=== PATIENT | female | born 1995 | race Caucasian/White ===

== ENCOUNTER 2022-02-05 13:21 | Outpatient (CLI) | payer OTHER, SELFPAY | END 2022-02-05 13:22 | disposition home or self-care (01) | PROVIDERS: Visit Provider Obstetrics & Gynecology | DX: N91.2 Amenorrhea, unspecified (principal) | CPT/HCPCS: 36415; 84702; 86850; 86900; 86901 ==

== ENCOUNTER 2022-02-14 01:31 | Day surgery (SDC) | payer OTHER, SELFPAY ==
[2022-02-10 10:50] VITALS: BMI 21.9
--- NOTE | 2022-02-10 10:57 | PC.NURSE ---
Report to the Outpatient Waiting Room, entrance under the green pavilion located off [facility], at time 0930 on date 02/14/22. OR Time: 1130. - You and your visitor will be asked to self-screen and do not enter if you have any COVID symptoms. - Only one visitor and NO children visitors are allowed at this time. - The patient visitor is requested to leave or wait in car when not with patient due to restrictions. - A mask is required within the hospital. Patients may have clear liquids (water, carbonated beverages, clear teas, apple juice) until 3 hours prior to surgery with a maximum of 20 ounces. - No food from midnight until time of surgery Take the following medications with a SIP of water the morning of surgery: NONE Medications to discontinue per physician: VITAMINS/SUPPLEMENTS Date to take last dose: 02/10/22 Please no make-up, nail divehi, hairspray, perfume, deodorant, or body powder the day of surgery. No jewelry (including any body piercings) or valuables the day of surgery, leave them at home. Please take a shower or bath the night before, or the morning of, surgery with an antibacterial soap. Wear comfortable, loose fitting clothing. - Jewelry must be removed prior to entering the operating room. Rings and piercings that are not removed may be cut off. - The hospital will not accept responsibility for valuables. - Please leave all valuables, including medications, at home the day of surgery. If you are going home after surgery, a licensed contract driver must drive you home. - NO public transportation without another adult. - We recommend that an adult stay with you for 24 hours following discharge. - We also recommend that you do not drive, make important decision, drink alcoholic beverages, or take any drugs that were not prescribed by your health care provider for at least 24 hours after your discharge time. Follow any additional instructions given to you from your surgeon. If you or anyone in your household have experienced Covid symptoms in the past week, please notify your surgeon or the nurse liaison at the phone number below for possible testing. Telephone instructions given to PT - REYNALDO DILLON and asked if any additional questions and then verbalized understanding. Patient advised to call surgeon office or pre surgery nurse liaison [phone] if any additional questions.
--- NOTE | 2022-02-13 19:33 | PM.IMHP ---
H&P: HPI History of Present Illness Date/Time: 02/13/22 19:33 Chief Complaint: Incomplete AB Narrative: Lisa is a 26yo P0010 who presents for incomplete AB. She came in with positive test for her first visit @ ~7wks at the end of December (LMP 11/30/21). Beta was >10k on 02/05/22. She started having bleeding ~02/02/22. She had an US performed on 02/07/22 and showed a thickened lining of 2cm with increased vascularity in it. She reports she has still having quite a bit of bleeding; like day 2-3 of her cycle. She isn't having too much cramping. Emotionally she is doing ok, sad. Review of Systems Review of Systems: All systems reviewed & are unremarkable except as noted in HPI and below PMFSH Past Medical History Medical History Anxiety Family History Family History Other Diabetes mellitus Heart disease Lung cancer Social History Social History Smoking status: Never smoker Alcohol intake: never Substance use: never Substance use type: does not use Gender identity (if verbalized by the patient): Female Spiritual care concerns: No Meds Home Medications and Allergies Home Medications Medication Instructions Recorded Confirmed Type ferrous sulfate 325 mg (65 mg 325 mg PO HS 02/10/22 02/10/22 History iron) tablet multivitamin 1 tablet PO DAILY 02/10/22 02/10/22 History Allergies Allergy/AdvReac Type Severity Reaction Status Date / Time No Known Allergies Allergy Unverified 02/10/22 10:48 Exam Const: General: cooperative, healthy appearing, comfortable and no acute distress Resp: Effort & Inspection: normal respiratory effort Cardio: Rate: regular rate GI: Inspection: normal to inspection GI Palp: No abdominal tenderness and Yes Soft to palpation : Other: deferred to OR Skin: General skin exam: normal color Neuro: General: patient oriented x3 Extrem: General: normal to inspection Psych: Appearance: grossly normal Affect: normal affect Attitude: cooperative Assessment and Plan Assessment and plan (1) Incomplete : Code(s): O03.4 - Incomplete spontaneous without complication Status: Acute Plan - all options discussed; expectant vs medical vs surgical - pt desires to proceed with surgical management via suction D&C - risks and benefits explained in detail - doxycycline 200mg PO once post-op - Rh positive; rhogam not indicated
--- NOTE | 2022-02-14 07:05 | WPDHPUPDATE1 ---
History and Physical Update Update Date/Time: 02/14/22 07:05 History and Physical has been reviewed, including an updated exam of the patient. There are NO changes in the patient's condition. Risks, benefits, and alternatives have been discussed and questions answered. Patient agrees to proceed with procedure.
--- NOTE | 2022-02-14 08:43 | P.PNAN_ITS ---
Anes - Initial Pre Proc Eval Procedure: Operation Date: 02/14/22 11:30 Proposed Procedures p Suction Dilation and Curettage - Maryam Boggs MD Date/Time: 02/14/22 08:43 Surgeon: Maryam Boggs MD Pre Op Diagnosis: missed ab Patient Data Age: 26 Gender: F Height: 1.61 m Weight: 57 kg Allergies Allergy/AdvReac Type Severity Reaction Status Date / Time No Known Allergies Allergy Unverified 02/14/22 09:41 Home Medications Medication Instructions Recorded Confirmed Type ferrous sulfate 325 mg (65 mg 325 mg PO HS 02/10/22 02/14/22 History iron) tablet multivitamin 1 tablet PO DAILY 02/10/22 02/14/22 History acetaminophen 500 mg tablet 1,000 mg PO Q6H PRN pain #60 tabs 02/14/22 Rx ibuprofen 800 mg tablet 800 mg PO TID PRN pain #30 tabs 02/14/22 Rx Patient hx anesthesia problems: none Family hx anesthesia problems: none Results Review: All pre-operative results and documents have been reviewed as part of the pre- operative evaluation. [facility] Past Medical History Medical History (Updated 02/14/22 @ 08:57 by David Boswell DO) Anemia Anxiety Family History Family History Other Diabetes mellitus Heart disease Lung cancer Social History Social History Smoking status: Never smoker Alcohol intake: never Substance use: never Substance use type: does not use Gender identity (if verbalized by the patient): Female Spiritual care concerns: No Anes - Eval Final PreProcedure Day of Procedure 02/14/22 08:43 Patient weight: normal Heart: regular rate and rhythm Lungs: clear to auscultation and normal air movement Airway: Mallampati scale class II Neurological: alert and oriented Last oral intake: >/= 8 hours ASA classification: II Emergent: no Anesthetic plan: proceed Anesthesia type and monitoring: general GIVS and standard monitoring Results Review: All pre-operative results and documents have been reviewed as part of the pre- operative evaluation. Informed Consent: The patient's anesthetic plan and its attendant risks and benefits were discussed with the patient/family/POA. Questions were solicited and answers provided to the satisfaction of the patient/family/POA.
[2022-02-14] MEDS: ACETAMINOPHEN 500 MG TABLET 1000 MG PO (09:52)
[2022-02-14] MEDS: LACTATED RINGERS 1,000 ML 30 ML IV CONT ×2 (10:03→12:54)
[2022-02-14 10:08] LABS: Hematocrit 38.4 % (37.0-47.0); Hemoglobin 12.4 g/dL (12.0-15.0)
[2022-02-14 10:12] VITALS: BP 101/64; PULSE 80; RESP 16; TEMP 36.3; O2SAT 100
[2022-02-14 11:55] VITALS: BP 82/48; PULSE 86; RESP 14; O2SAT 97
--- NOTE | 2022-02-14 11:59 | W.PM.PROC2 ---
Procedure Note - Detailed Date of Procedure 02/14/22 Pre-op Diagnosis Incomplete ab Post-op Diagnosis Same Procedure Performed Suction D&C Surgeon Maryam Boggs MD Anesthesia MAC Indications Lisa is a 26yo P0010 who presented for incomplete AB. She came in with positive test for her first visit @ ~7wks at the end of December (LMP 11/30/21). Beta was >10k on 02/05/22. She started having bleeding ~02/02/22. She had an US performed on 02/07/22 and showed a thickened lining of 2cm with increased vascularity in it. She reports she has still having quite a bit of bleeding; like day 2-3 of her cycle. Findings Cervix ~0.5cm dilated, no bleeding noted. Uterus 8cm; 7 F canula used. Thin endometrial strip at end of case on US. Good hemostasis at end of case. Description of Procedure Lisa was taken to the operating room where she was placed under sedation. She was then prepped and draped in the usual sterile fashion in the dorsal lithotomy position with her legs in low Asad stirrups. A time-out was performed and no preoperative antibiotics were indicated. She will receive doxycycline 200 mg p.o. postop once. A bivalved speculum was then placed within the vagina and the cervix was easily identified. The anterior lip of the cervix was then grasped with single-tooth tenaculum. The uterus was gently sounded. The cervix was then serially dilated to allow for the 7 Slovenian, curved suction curettage. A total of 3 passes were made. Prior to the 3rd pass, the ultrasound was used to visualized a thin endometrial stripe. However, products of conception were noted to be removed the first 2 times so decision was made to make 1 additional pass. Good hemostasis was noted. All instruments were removed from the vagina. Patient was awoken from anesthesia and taken to recovery in a stable condition with plans of same-day discharge home. Estimated Blood Loss 5 IV Fluids 600 Pathology Yes Complications No immediate complications Condition Stable Disposition Same day [facility] Billing Surgery - Charge Forward: Surgery Billing
[2022-02-14 12:15] VITALS: BP 83/43; PULSE 84; RESP 14; O2SAT 100
[2022-02-14 12:45] VITALS: BP 90/56; PULSE 72; RESP 14; O2SAT 100
[2022-02-14] MEDS: DOXYCYCLINE HYCLATE 100 MG TABLET 200 MG PO (12:53)
[2022-02-14 13:15] VITALS: BP 102/68; PULSE 80; RESP 14
[2022-02-14] MEDS: oxyCODONE HCL (*CRX) 5 MG TAB IR PO (13:15)
[2022-02-14 13:35] VITALS: BP 100/65; PULSE 83; RESP 14
== END 2022-02-14 13:43 | disposition home or self-care (01) ==
PROVIDERS: Anesthesiology; Visit Provider Obstetrics & Gynecology
PROC: (CPT 59812; principal; 2022-02-14 11:30)
DX: O03.4 Incomplete spontaneous abortion without complication (principal); F41.9 Anxiety disorder, unspecified; D64.9 Anemia, unspecified
CPT/HCPCS: 59812; 36415; 85014; 85018; 88305; A9270; J1885; J2250; J2704; J3010; J7120

== ENCOUNTER 2022-07-28 15:21 | Outpatient (CLI) | payer OTHER, SELFPAY ==
[2022-07-28 15:54] LABS: Basophils Percent Auto 0.2 % (0.2-1.2); Eosinophils Absolute Auto 0.1 K/mm3 (0-0.3); Eosinophils Percent Auto 0.6 % (0-4.4); Hematocrit 38.1 % (37.0-47.0); Hemoglobin 12.5 g/dL (12.0-15.0); Immature Granulocyte Absolute 0.02 K/mm3 (0.00-0.031); Immature Granulocyte Percent A 0.2 % (0-0.5); Lymphocytes Absolute Auto 1.73 K/mm3 (0.9-3.2); Lymphocytes Percent Auto 20.8 % (18.3-44.2); Mean Corpuscular HGB Conc 32.8 g/dl (32-36); Mean Corpuscular Hemoglobin 30.3 pg (26-34); Mean Corpuscular Volume 92.3 fl (80-100); Mean Platelet Volume 8.5 fl (7.4-10.4); Monocytes Absolute Auto 0.5 K/mm3 (0.1-0.6); Neutrophils Percent Auto 72.2 % (45.5-73.1); Platelet Count Result 437 k/mm3 (150-375); Red Blood Count 4.13 M/mm3 (4.2-5.4); Red Cell Distribution Width 13.6 % (11.5-14.5); White Blood Count 8.3 K/mm3 (4.5-10.0)
[2022-07-28 16:45] LABS: HIV 1/2 Ab P24 Ag Result Negative (Negative)
[2022-07-28 19:39] LABS: Hepatitis B Surface Antigen Negative (Negative)
[2022-07-29 16:54] LABS: Rapid Plasma Reagin Non-Reactive (NonReactive)
[2022-08-01 11:30] LABS: CMV IgG Antibody <0.60 U/mL (<0.60)
== END 2022-07-28 15:22 | disposition home or self-care (01) ==
LOC: ANHLAB 15:22
PROVIDERS: Visit Provider Student in an Organized Health Care Education/Training Program
DX: N94.89 Other specified conditions associated with female genital organs and menstrual cycle (principal)
CPT/HCPCS: 36415; 84702; 85025; 86592; 86644; 86703; 86747; 86787; 86850; 86900; 86901; 87086; 87340; G0432

== ENCOUNTER 2022-10-07 16:56 | Outpatient (CLI) | payer OTHER, SELFPAY ==
[2022-10-07 19:46] LABS: Rubella IgG Antibody 9.4 IU/ML
== END 2022-10-07 16:57 | disposition home or self-care (01) ==
LOC: ANHLAB 16:58
PROVIDERS: Visit Provider Student in an Organized Health Care Education/Training Program
DX: Z34.90 Encounter for supervision of normal pregnancy, unspecified, unspecified trimester (principal)
CPT/HCPCS: 36415; 86762

== ENCOUNTER 2022-12-15 13:44 | Outpatient (CLI) | payer OTHER, SELFPAY ==
[2022-12-15 16:30] LABS: Basophils Percent Auto 0.3 % (0.2-1.2); Eosinophils Percent Auto 0.4 % (0-4.4); Hematocrit 35.4 % (37.0-47.0); Hemoglobin 11.3 g/dL (12.0-15.0); Immature Granulocyte Absolute 0.06 K/mm3 (0.00-0.031); Immature Granulocyte Percent A 0.6 % (0-0.5); Lymphocytes Absolute Auto 1.65 K/mm3 (0.9-3.2); Lymphocytes Percent Auto 16.9 % (18.3-44.2); Mean Corpuscular HGB Conc 31.9 g/dl (32-36); Mean Corpuscular Hemoglobin 29.6 pg (26-34); Mean Corpuscular Volume 92.7 fl (80-100); Monocytes Absolute Auto 0.5 K/mm3 (0.1-0.6); Monocytes Percent Auto 4.9 % (2.6-8.5); Neutrophils Absolute Auto 7.5 K/mm3 (1.3-6.7); Neutrophils Percent Auto 76.9 % (45.5-73.1); Platelet Count Result 323 k/mm3 (150-375); Red Blood Count 3.82 M/mm3 (4.2-5.4); Red Cell Distribution Width 13.2 % (11.5-14.5); White Blood Count 9.7 K/mm3 (4.5-10.0)
[2022-12-15 16:35] LABS: Glucose 1 Hour PP 50gm Dose 104 mg/dL
[2022-12-15 17:14] LABS: HIV 1/2 Ab P24 Ag Result Negative (Negative)
== END 2022-12-15 13:45 | disposition home or self-care (01) ==
LOC: ANHLAB 13:45
PROVIDERS: Visit Provider Obstetrics & Gynecology
DX: Z34.90 Encounter for supervision of normal pregnancy, unspecified, unspecified trimester (principal); Z3A.00 Weeks of gestation of pregnancy not specified
CPT/HCPCS: 36415; 82947; 85025; 86703; G0432

== ENCOUNTER 2023-02-20 01:43 | Inpatient (IN) | payer OTHER, SELFPAY ==
[2023-02-20] VITALS (279 sets, daily range): BP systolic 109–149; BP diastolic 63–109; PULSE 59–163; TEMP 36.6–37.3; O2SAT 89–100; BMI 30.9
[2023-02-20] MEDS: LACTATED RINGERS 1,000 ML 125 ML IV CONT (02:41)
[2023-02-20] MEDS: AMPICILLIN 2 GM/NS 100 ML 2 GM/100 ML BAG IVPB (02:42)
--- NOTE | 2023-02-20 02:49 | LDADM ---
This patient, Lisa Hernandez, was admitted to Labor/Delivery/Recovery 108 on 02/20/23 at 01:43. Plans for labor, pain management and were discussed with patient. Patient/family oriented to hospital policies and general routines including ID bracelet, bed and alarms, visiting hours, pain management, procedures, bathroom and other care routines, personal items, smoking policy, room service/diet and guest tray routines, infant security routines, and visiting hours. Patient/Family are encouraged to report perceived risks to care and to ask questions if they do not understand what they are told or what they should do. See OBIX for further documentation.
[2023-02-20 03:15] LABS: Basophils Percent Auto 0.3 % (0.2-1.2); Eosinophils Absolute Auto 0.1 K/mm3 (0-0.3); Eosinophils Percent Auto 0.6 % (0-4.4); Hematocrit 37.8 % (37.0-47.0); Hemoglobin 12.3 g/dL (12.0-15.0); Immature Granulocyte Absolute 0.07 K/mm3 (0.00-0.031); Immature Granulocyte Percent A 0.6 % (0-0.5); Lymphocytes Absolute Auto 2.13 K/mm3 (0.9-3.2); Lymphocytes Percent Auto 19.6 % (18.3-44.2); Mean Corpuscular HGB Conc 32.5 g/dl (32-36); Mean Corpuscular Hemoglobin 29.1 pg (26-34); Mean Corpuscular Volume 89.6 fl (80-100); Mean Platelet Volume 10.1 fl (7.4-10.4); Monocytes Absolute Auto 0.6 K/mm3 (0.1-0.6); Monocytes Percent Auto 5.7 % (2.6-8.5); Neutrophils Percent Auto 73.2 % (45.5-73.1); Platelet Count Result 305 k/mm3 (150-375); Red Blood Count 4.22 M/mm3 (4.2-5.4); Red Cell Distribution Width 13.6 % (11.5-14.5); White Blood Count 10.9 K/mm3 (4.5-10.0)
[2023-02-20] MEDS: FAMOTIDINE 20 MG/2 ML VIAL IV PUSH (03:28)
[2023-02-20] MEDS: LACTATED RINGERS 1,000 ML 999 ML IV CONT ×2 (06:03→14:43)
--- NOTE | 2023-02-20 06:09 | WPDANESEPP ---
Anes - Eval Pre Procedure Procedure: Labor epidural Date/Time: 02/20/23 06:09 Surgeon: Ambrose Preop Diagnosis: Abdominal pain with contractions Pre Op Diagnosis: Leaking Fluid Patient Data Age: 27 Gender: F Height: 1.6 m Weight: 79.379 kg Last Vital Signs Temp 97.9 F 02/20/23 03:00 Pulse 88 02/20/23 06:08 BP 130/88 02/20/23 06:08 Pulse Ox 96 02/20/23 06:04 O2 Del Method Room Air 02/20/23 02:48 Allergies Allergy/AdvReac Type Severity Reaction Status Date / Time No Known Allergies Allergy Verified 02/20/23 02:55 Home Medications Medication Instructions Recorded Confirmed Type ferrous sulfate 325 mg (65 mg 325 mg PO HS 02/10/22 02/20/23 History iron) tablet multivitamin 1 tablet PO DAILY 02/10/22 02/20/23 History valacyclovir 500 mg tablet 500 mg PO DAILY #90 tabs 02/06/23 02/08/23 Rx Laboratory Tests 02/20/23 02:38 WBC 10.9 H K/mm3 (4.5-10.0) RBC 4.22 M/mm3 (4.2-5.4) Hgb 12.3 g/dL (12.0-15.0) Hct 37.8 % (37.0-47.0) MCV 89.6 fl (80-100) MCH 29.1 pg (26-34) MCHC 32.5 g/dl (32-36) RDW 13.6 % (11.5-14.5) Plt Count 305 k/mm3 (150-375) MPV 10.1 fl (7.4-10.4) Immature Gran % (Auto) 0.6 H % (0-0.5) Neut % (Auto) 73.2 H % (45.5-73.1) Lymph % (Auto) 19.6 % (18.3-44.2) [place] % (Auto) 5.7 % (2.6-8.5) Eos % (Auto) 0.6 % (0-4.4) Baso % (Auto) 0.3 % (0.2-1.2) Lymph # (Auto) 2.13 K/mm3 (0.9-3.2) [place] # (Auto) 0.6 K/mm3 (0.1-0.6) Eos # (Auto) 0.1 K/mm3 (0-0.3) Baso # (Auto) 0.0 K/mm3 (0.0-0.1) Abs Immat Gran (auto) 0.07 H K/mm3 (0.00-0.031) Absolute Neuts (auto) 8.0 H K/mm3 (1.3-6.7) Absolute Nucleated RBC 0.0 K/mm3 (0.0-0.012) Nucleated RBC % 0.0 % (0.0-0.2) RPR Pending Blood Type A Positive Antibody Screen Negative : gestational age HCG: positive Patient hx anesthesia problems: none Family hx anesthesia problems: none Results Review: All pre-operative results and documents have been reviewed as part of the pre-operative evaluation. [facility] Past Medical History Medical History (Updated 02/20/23 @ 06:10 by Anish Munguia CRNA) Anemia Eczema Overweight (BMI 25.0-29.9) Suppression of menses Surgical History Surgical History History of dilation and curettage Family History Family History Mother Multiple sclerosis Sibling Arrhythmia Other Diabetes mellitus Heart disease Lung cancer Social History Social History Smoking status: Never smoker Alcohol intake: never Substance use: never Substance use type: does not use Lack of Transportation: No Lack of Food: Never True Current Housing: I Have Housing Concerned About Future Housing: No Difficulty Paying Gas/Electric Bills: No Difficulty Paying for Meds: No Currently Unemployed: No Education: High School Diploma/GED Difficulty w/ Childcare or Family Care: No Living arrangements: with family Occupation/Education: occupation Gender identity (if verbalized by the patient): Female Spiritual care concerns: No Exam Day of Procedure 02/20/23 06:09 Patient weight: overweight Airway: Mallampati scale class II
[2023-02-20] MEDS: AMPICILLIN 1 GM/NS 50 ML 1 GM/50 ML BAG IVPB ×5 (06:39→23:22)
--- NOTE | 2023-02-20 07:18 | PM.IMHP ---
H&P: HPI History of Present Illness Date/Time: 02/20/23 07:18 Chief Complaint: leaking Narrative: Lisa is a 27yo @ 38.4wks who presented to L&D early this morning with leakage of clear fluid at 0100. She reports good movement. She has been having contractions; now s/p epidural and comfortable. No vaginal bleeding. She has had regular care. 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 - GBS positive Review of Systems Constitutional: Constitutional: Denies chills, Denies fever(s) and Denies headache(s) Eyes: Eyes: Denies change in vision ENT: Denies headache(s) Cardiovascular: Cardiovascular: Denies chest pain and Denies dyspnea Respiratory: Respiratory: Denies dyspnea Genitourinary: Genitourinary: Denies abnormal vaginal bleeding and Reports vaginal discharge Neurologic: Denies headache(s) Psychiatric: Psychiatric: Denies anxiety and Denies depression [facility] Past Medical History Medical History (Updated 02/20/23 @ 07:22 by Maryam Boggs MD) Anemia Eczema Overweight (BMI 25.0-29.9) Suppression of menses Surgical History Surgical History History of dilation and curettage Family History Family History Mother Multiple sclerosis Sibling Arrhythmia Other Diabetes mellitus Heart disease Lung cancer Social History Social History Smoking status: Never smoker Alcohol intake: never Substance use: never Substance use type: does not use Lack of Transportation: No Lack of Food: Never True Current Housing: I Have Housing Concerned About Future Housing: No Difficulty Paying Gas/Electric Bills: No Difficulty Paying for Meds: No Currently Unemployed: No Education: High School Diploma/GED Difficulty w/ Childcare or Family Care: No Living arrangements: with family Occupation/Education: occupation Gender identity (if verbalized by the patient): Female Spiritual care concerns: No Meds Home Medications and Allergies Home Medications Medication Instructions Recorded Confirmed Type ferrous sulfate 325 mg (65 mg 325 mg PO HS 02/10/22 02/20/23 History iron) tablet multivitamin 1 tablet PO DAILY 02/10/22 02/20/23 History valacyclovir 500 mg tablet 500 mg PO DAILY #90 tabs 02/06/23 02/08/23 Rx Allergies Allergy/AdvReac Type Severity Reaction Status Date / Time No Known Allergies Allergy Verified 02/20/23 02:55 Vital Signs Vital Signs - 24 hr 02/20/23 03:00 02/20/23 06:04 02/20/23 06:08 Temperature 97.9 F Pulse Rate 88 Blood Pressure 130/88 Pulse Oximetry 96 Oxygen Delivery 02/20/23 06:09 02/20/23 06:12 02/20/23 06:14 Temperature Pulse Rate 92 119 H 106 H Blood Pressure 143/90 H 141/95 H 141/90 H Pulse Oximetry 100 98 Oxygen Delivery 02/20/23 06:19 02/20/23 06:20 02/20/23 06:22 Temperature Pulse Rate 81 96 Blood Pressure 121/93 H 128/84 Pulse Oximetry 98 Oxygen Delivery 02/20/23 06:24 02/20/23 06:29 02/20/23 06:32 Temperature Pulse Rate 94 Blood Pressure 126/75 Pulse Oximetry 97 99 Oxygen Delivery 02/20/23 06:34 02/20/23 06:35 02/20/23 06:37 Temperature Pulse Rate 87 79 Blood Pressure 136/83 136/90 Pulse Oximetry 99 Oxygen Delivery 02/20/23 06:39 02/20/23 06:40 02/20/23 06:44 Temperature Pulse Rate 81 Blood Pressure 131/80 Pulse Oximetry 99 99 Oxygen Delivery 02/20/23 06:45 02/20/23 06:49 02/20/23 06:54 Temperature Pulse Rate 71 Blood Pressure 123/76 Pulse Oximetry 100 100 Oxygen Delivery 02/20/23 06:59 02/20/23 07:00 02/20/23 07:04 Temperature Pulse Rate 99 Blood Pressure 117/77 Pulse Oximetry 99 100 Oxygen Delivery 02/20/23 07:09 02/20/23 07
--- NOTE | 2023-02-20 07:28 | WPDHPUPDATE1 ---
History and Physical Update Update Date/Time: 02/20/23 07:28 History and Physical has been reviewed, including an updated exam of the patient. There are NO changes in the patient's condition. Risks, benefits, and alternatives have been discussed and questions answered. Patient agrees to proceed with procedure.
[2023-02-20 10:57] LABS: Rapid Plasma Reagin Non-Reactive (NonReactive)
--- NOTE | 2023-02-20 11:58 | PM.OBPNLAB ---
Pain Control Date/time seen: 02/20/23 11:58 Pain control: epidural Pelvic Exam Dilation (cm): 5 Effacement (%): 90 station: -2 Amniotic membrane status: Ruptured (SROM, clear 0100) Contractions Monitor mode: External Contraction frequency: 2 Contraction pattern: Regular Status status: Category l Assessment and Plan Plan: continuous present management Comments: - pitocin if contractions space out or no change in cervix; currently progressing nicely - continue ampicillin
--- NOTE | 2023-02-20 16:58 | PM.OBPNLAB ---
Pain Control Date/time seen: 02/20/23 16:58 Pain control: epidural Pelvic Exam Dilation (cm): 6 Effacement (%): 90 station: -1 Amniotic membrane status: Ruptured (SROM, clear 0100) Contractions Monitor mode: Internal Contraction frequency: 2 Contraction pattern: Regular Contraction intensity: Mild Status status: Category l Assessment and Plan Pitocin rate (mU/min): 4 Assessment: active labor Plan: begin patient augmentation (pitocin started)
[2023-02-20] MEDS: ONDANSETRON INJ 4 MG/2 ML VIAL IV PUSH (20:21)
[2023-02-21] VITALS (29 sets, daily range): BP systolic 111–172; BP diastolic 56–149; PULSE 91–163; RESP 16–20; TEMP 36.1–37; O2SAT 97–100
--- NOTE | 2023-02-21 01:03 | PM.OBPNLAB ---
Pain Control Date/time seen: 02/21/23 01:03 Pain control: epidural Pelvic Exam Dilation (cm): 10 Effacement (%): 100 station: +1 (caput) Amniotic membrane status: Ruptured (SROM, clear 0100) Contractions Monitor mode: Internal Contraction frequency: 2 Contraction pattern: Regular Status status: Category ll (reassuring) Assessment and Plan Pitocin rate (mU/min): 10 Plan: Comments: patient has pushed for almost 3 hours with minimal descent (feels direct OP); significant caput and swelling noted risks and benefits of discussed in detail
[2023-02-21] MEDS: ceFAZolin 2 GM/D5W 50 ML 2 GM/50 ML BAG IVPB (01:28)
[2023-02-21] MEDS: KETOROLAC 30 MG/ML VIAL (*BKC) IV PUSH ×2 (02:26→08:44)
--- NOTE | 2023-02-21 02:41 | PM.OBPRVD ---
OB - Delivery Note Procedure Delivery date: 02/21/23 Procedure: Procedures Operation Date: 02/21/23 01:10 <No data on this case meets the specified criteria> Events: Positive Group B Strep (GBS) (with prolonged rupture of membranes) Intrapartal Events: Arrest of Descent Delivery augmentation: Pitocin Delivery monitor: External FHT and Internal Uterine Route of delivery: Prior to decision for section, [facility] labor guidelines were considered and discussed with the patient and staff. Decision made to proceed with the section.: Yes Specimen: Yes (placenta) Quantitative Blood Loss (ml): 515 Anesthesia type: Epidural (converted to general ) Disposition: PACU Baby Date of : 02/21/23 Time of : 02:01 Weeks of gestation at delivery: 38 (.5) gender: Female Weight (pounds): 7 Weight (ounces): 9 presentation: vertex position: Left Occiput Anterior (asynclitic ) Placenta delivery description: Manual Removal (after uterine inversion was resolved) Cord Vessel Description: 3 Vessels and Clamped/Cut score one minute: 9 score five minutes: 9 Narrative: She was counseled on all risks and benefits in detail. She was taken to the operating room where epidural was dosed again and was found to be adequate. She was then prepped and draped in the normal sterile fashion. She received 2g Ancef and Azithromycin 500mg IV and a time out was performed. A Pfannenstiel incision was made in the skin and carried down to the underlying fascia. The fascia was nicked on either side of the midline and the fascial incision was extended laterally and superiorly using curved Rayo scissors. The fascia was then elevated using Quinn clamps and the underlying rectus muscles were dissected off the fascia, superiorly and inferiorly. The rectus muscles were then in the midline and the peritoneum was entered bluntly. At this point, Lisa was feeling significant pain when the peritoneum was touched. She had already had multiple boluses, and anesthesia made the decision to proceed with general endotracheal anesthesia. Once adequate exposure was obtained, a Mobius self retractor was placed within the abdomen. A bladder flap was created. A low transverse incision was made on the lower uterine segment and clear fluid was noted. The occiput was brought to the hysterotomy and the head was easily delivered. The shoulders and body then followed without complications. The cord was clamped and cut and the was handed off to the awaiting pediatric team. A segment of the cord was collected for cord gases. With pitocin infusing, gentle traction was placed on the cord without complications. A uterine inversion was identified. Nursing was informed and obtained terbutaline (but it was not needed); but with cessation of the pitocin, the uterus was able to be reverted back without complication. The pitocin was restarted and she was given a dose of methergine to help contract the uterus back down. The uterus was then cleared out of all clots and debris using a clean, moist lap. The hysterotomy was then repaired in a running, interlocking fashion using 0 Vicryl. A second layer imbricating suture was then made using 0 Vicryl. The left broad ligament had a small area of bleeding, therefore a figure of eight stitch using 0 Vicryl was placed and the hysterotomy was found to be hemostatic and good uterine tone was noted. The bilateral adnexa were examined and found to be normal. The pelvis was cleared of all clots and fluid. The Mobius retractor was removed from the abdomen. The peritoneum, muscle, and fascia were examined and made hemostatic with bovie cautery. The fascia was then repaired using a 0 Vicryl suture in a running fashion. The subcutaneous tissue was then irrigated and made hemostatic with bovie cautery. The subcutaneous tissue was then reapproximated using 2-0 Vicryl. The skin was then closed u
[2023-02-21] MEDS: miSOPROStol 200 MCG TABLET 800 MCG RECTAL (03:09)
[2023-02-21] MEDS: MORPHINE SULFATE INJ (*CRX) 10 MG/ML AMP 2 MG IV PUSH (04:03)
[2023-02-21] MEDS: OXYTOCIN 30 UNITS/NS 500 ML 30 UNITS/500 ML BAG 125 UNITS IV CONT (05:45)
[2023-02-21] MEDS: DOCUSATE SODIUM 100 MG CAPSULE PO ×2 (08:42→17:17)
[2023-02-21] MEDS: MULTIVIT/MIN/PREN/FOL AC/IRON TABLET 1 TAB PO (08:43)
[2023-02-21] MEDS: HYDROcodone/acetaminophen (*CRX) 5-325 MG TABLET 1 TAB PO ×2 (08:44→11:47)
--- NOTE | 2023-02-21 09:40 | PC.NURSE ---
Breast pump provided due to maternal request. Instructions given on cleaning, care, usage, that there should be no pain, pumping schedule for milk production, collection, and storage of human milk. Patient was assessed for correct placement, flange size, to pump for comfort and nipple stretching/stimulation for adequate milk production every 3 hours (8 times in 24 hours) 1-2 times at night.
[2023-02-21] MEDS: DEXTROSE 5%/0.45% SOD CHL 1,000 ML 125 ML IV CONT (09:54)
--- NOTE | 2023-02-21 12:39 | PC.NURSE ---
0830 - Report received that mother wants to pump and feed only. No putting to breast. Report passed from nights to days that mother didn't want to pump last night and wanted to sleep after a primary section after induction. Mother was initiated with pumping this morning.
[2023-02-21] MEDS: HYDROcodone/acetaminophen (*CRX) 10-325 MG TABLET 1 TAB PO ×2 (15:37→19:10)
[2023-02-21] MEDS: IBUPROFEN 600 MG TABLET PO (19:10)
[2023-02-22] MEDS: HYDROcodone/acetaminophen (*CRX) 10-325 MG TABLET 1 TAB PO ×2 (04:40→08:25)
[2023-02-22] MEDS: IBUPROFEN 600 MG TABLET PO ×3 (04:40→20:30)
[2023-02-22 05:03] LABS: Basophils Percent Auto 0.3 % (0.2-1.2); Eosinophils Absolute Auto 0.1 K/mm3 (0-0.3); Hemoglobin 10.7 g/dL (12.0-15.0); Immature Granulocyte Absolute 0.08 K/mm3 (0.00-0.031); Immature Granulocyte Percent A 0.6 % (0-0.5); Lymphocytes Absolute Auto 1.63 K/mm3 (0.9-3.2); Lymphocytes Percent Auto 12.9 % (18.3-44.2); Mean Corpuscular HGB Conc 32.4 g/dl (32-36); Mean Corpuscular Hemoglobin 29.6 pg (26-34); Mean Corpuscular Volume 91.2 fl (80-100); Mean Platelet Volume 9.2 fl (7.4-10.4); Monocytes Absolute Auto 0.7 K/mm3 (0.1-0.6); Monocytes Percent Auto 5.3 % (2.6-8.5); Neutrophils Absolute Auto 10.1 K/mm3 (1.3-6.7); Neutrophils Percent Auto 79.9 % (45.5-73.1); Platelet Count Result 235 k/mm3 (150-375); Red Blood Count 3.62 M/mm3 (4.2-5.4); Red Cell Distribution Width 13.9 % (11.5-14.5); White Blood Count 12.7 K/mm3 (4.5-10.0)
[2023-02-22 05:15] LABS: Alanine Aminotransferase 16 U/L (6-35); Albumin Level 2.3 g/dL (3.5-5.1); Alkaline Phosphatase 96 U/L (38-126); Anion Gap 2 mmol/L (8-16); Aspartate Amino Transferase 42 U/L (14-36); Bilirubin,Total 0.3 mg/dL (0.2-1.3); Blood Urea Nitrogen 7 mg/dL (7-17); Calcium 7.3 mg/dL (8.4-10.2); Carbon Dioxide 25 mmol/L (22-30); Chloride 106 mmol/L (98-107); Estimated CRCL calculation 118 ml/min; Estimated Glomerular Filt Rate > 60; Glucose 83 mg/dL (65-110); Sodium 133 mmol/L (137-145)
--- NOTE | 2023-02-22 07:17 | PM.OBPNVD ---
OB - PN: Subj Subjective Date/time seen: 02/22/23 07:17 Narrative: POD#1 Lisa reports doing well today. 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 Her pain is controlled. She is tolerating regular diet, passing gas. Farah was removed at 0400 (pt refused removal yesterday). She has only ambulated once, sat in the chair yesterday. She denies any issues with her incision. She has pumped twice. OB - PN: Obj Data Labs 02/22/23 04:07 02/22/23 04:07 Labs: Laboratory Results - last 24 hr 02/22/23 04:07 WBC 12.7 H RBC 3.62 L Hgb 10.7 L Hct 33.0 L MCV 91.2 MCH 29.6 MCHC 32.4 RDW 13.9 Plt Count 235 MPV 9.2 Immature Gran % (Auto) 0.6 H Neut % (Auto) 79.9 H Lymph % (Auto) 12.9 L [place] % (Auto) 5.3 Eos % (Auto) 1.0 Baso % (Auto) 0.3 Lymph # (Auto) 1.63 [place] # (Auto) 0.7 H Eos # (Auto) 0.1 Baso # (Auto) 0.0 Abs Immat Gran (auto) 0.08 H Absolute Neuts (auto) 10.1 H Absolute Nucleated RBC 0.0 Nucleated RBC % 0.0 Sodium 133 L Potassium 3.0 L Chloride 106 Carbon Dioxide 25 Anion Gap 2 L BUN 7 Creatinine 0.60 L Estim Creat Clear Calc 118 Estimated GFR > 60 Glucose 83 Calcium 7.3 L Total Bilirubin 0.3 AST 42 H ALT 16 Alkaline Phosphatase 96 Total Protein 5.0 L Albumin 2.3 L OB - PN A/P Assessment and Plan (1) Arrest of descent, delivered, current hospitalization: Code(s): 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.1 - Secondary uterine inertia Status: Acute (2) S/P section: Code(s): Z98.891 - History of uterine scar from previous surgery Status: Acute Plan day: 1 Plan: routine care Comments: - Pt to get up in 30-60 min to try and void - encouraged hydration, ambulation, and pumping q3h - Continue pain meds PRN Time Spent With Patient Time: Total time spent is greater than 50% in coordination of care (as documented) at patient's floor/unit and/or counseling patient: Review of Systems Constitutional: Constitutional: Denies chills, Denies fever(s) and Denies headache(s) Eyes: Eyes: Denies change in vision ENT: Denies dizziness and Denies headache(s) Cardiovascular: Cardiovascular: Denies chest pain, Denies palpitations and Denies dyspnea Respiratory: Respiratory: Denies cough and Denies dyspnea Gastrointestinal: Gastrointestinal: Denies nausea and Denies vomiting Genitourinary: Comments: normal bleeding Neurologic: Denies dizziness and Denies headache(s) Endocrine: Endocrine: Denies palpitations Exam Const: General: cooperative, comfortable and no acute distress Orientation/consciousness: patient oriented x3 Resp: Effort & Inspection: normal respiratory effort Auscultation: clear to auscultation bilaterally Cardio: Rate: regular rate GI: Inspection: non-distended and incision (covered with clean dressing) GI Palp: Yes abdominal tenderness (appropriate) and Yes Soft to palpation Auscultation: normal bowel sounds : Other: fundus firm Skin: General skin exam: normal color Neuro: General: patient oriented x3 Extrem: General: normal to inspection Psych: Appearance: grossly normal Affect: normal affect Attitude: cooperative
[2023-02-22 07:55] VITALS: BP 126/87; PULSE 97; RESP 16; TEMP 36.4; O2SAT 98
[2023-02-22] MEDS: MULTIVIT/MIN/PREN/FOL AC/IRON TABLET 1 TAB PO (08:24)
[2023-02-22] MEDS: DOCUSATE SODIUM 100 MG CAPSULE PO ×2 (08:25→16:35)
[2023-02-22] MEDS: LIDOCAINE 5% PATCH 1 PATCH TRANSDERM ×2 (08:26→20:35)
--- NOTE | 2023-02-22 10:24 | WPDANLDNPN2 ---
Anes-Prog Note L&D-Neuraxial Date/Time: 02/22/23 10:24 Patient feedback: Patient satisfied with post-operative pain management.
--- NOTE | 2023-02-22 10:24 | WPDANLDPN2 ---
Anes-Prog Note L&D Date/Time: 02/22/23 10:24 Neuro status: Neuro function grossly intact. Cardiovascular status: normal Respiratory status: normal Airway patency: baseline Mental status: baseline Post-Op hydration status: normal Vital Signs: Last Vital Signs Temp 36.4 C 02/22/23 07:55 Pulse 97 02/22/23 07:55 Resp 16 02/22/23 07:55 BP 126/87 02/22/23 07:55 Pulse Ox 98 02/22/23 07:55 O2 Del Method Room Air 02/21/23 11:50 Pain score (VAS): 0 I/O: Intake & Output 02/21/23 02/22/23 02/22/23 23:59 07:59 15:59 Intake Total 1000 Output Total 2100 Balance -1100 Post-procedural complaints: none Patient feedback: Patient satisfied with anesthetic care.
[2023-02-22] MEDS: HYDROcodone/acetaminophen (*CRX) 5-325 MG TABLET 1 TAB PO ×3 (13:25→20:31)
[2023-02-22 20:11] VITALS: BP 130/90; PULSE 96; RESP 16; TEMP 36.4; O2SAT 100
[2023-02-23] MEDS: HYDROcodone/acetaminophen (*CRX) 5-325 MG TABLET 1 TAB PO ×2 (07:16→13:58)
[2023-02-23] MEDS: IBUPROFEN 600 MG TABLET PO ×3 (07:17→19:35)
--- NOTE | 2023-02-23 07:20 | PM.OBPNVD ---
OB - PN: Subj Subjective Date/time seen: 02/23/23 07:20 Narrative: POD#2 Lisa reports doing well today. 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 Her pain is controlled. She is tolerating regular diet, voiding, passing gas, and ambulating without issues. She denies any issues with her incision. She is pumping/supplementing. OB - PN: Obj Data Labs 02/22/23 04:07 02/22/23 04:07 OB - PN A/P Assessment and Plan (1) S/P section: Code(s): Z98.891 - History of uterine scar from previous surgery Status: Acute (2) Arrest of descent, delivered, current hospitalization: Code(s): O62.1 - Secondary uterine inertia Status: Acute (3) Gestational hypertension: Qualifiers: Trimester: third trimester Qualified Code(s): O13.3 - Gestational [-induced] hypertension without significant proteinuria, third trimester Code(s): O13.9 - Gestational [-induced] hypertension without significant proteinuria, unspecified trimester Status: Acute Plan day: 2 Plan: routine care and discharge home (this PM pending pedi clearance) Comments: - Pelvic rest; take meds as prescribed - Incision care/no heavy lifting - ER return precautions: fever, n/v/abd pain, bleeding, HTN Time Spent With Patient Time: Total time spent is greater than 50% in coordination of care (as documented) at patient's floor/unit and/or counseling patient: Review of Systems Constitutional: Constitutional: Denies chills, Denies fever(s) and Denies headache(s) Eyes: Eyes: Denies change in vision ENT: Denies dizziness and Denies headache(s) Cardiovascular: Cardiovascular: Denies chest pain, Denies palpitations and Denies dyspnea Respiratory: Respiratory: Denies cough and Denies dyspnea Gastrointestinal: Gastrointestinal: Denies nausea and Denies vomiting Genitourinary: Comments: normal bleeding Neurologic: Denies dizziness and Denies headache(s) Endocrine: Endocrine: Denies palpitations Exam Const: General: cooperative, comfortable, no acute distress and obese Orientation/consciousness: patient oriented x3 Resp: Effort & Inspection: normal respiratory effort Auscultation: clear to auscultation bilaterally Cardio: Rate: regular rate GI: Inspection: non-distended and incision (covered with clean dressing) GI Palp: Yes abdominal tenderness (appropriate) and Yes Soft to palpation Auscultation: normal bowel sounds : Other: fundus firm Skin: General skin exam: normal color Neuro: General: patient oriented x3 Extrem: General: normal to inspection Psych: Appearance: grossly normal Affect: normal affect Attitude: cooperative
[2023-02-23 08:15] VITALS: BP 129/92; PULSE 94; RESP 16; TEMP 36.4; O2SAT 100
[2023-02-23] MEDS: DOCUSATE SODIUM 100 MG CAPSULE PO ×2 (09:22→17:12)
[2023-02-23] MEDS: MULTIVIT/MIN/PREN/FOL AC/IRON TABLET 1 TAB PO (09:23)
[2023-02-23 12:38] VITALS: BP 103/66; PULSE 80; RESP 18; TEMP 36.3; O2SAT 100
[2023-02-23 18:30] VITALS: BP 133/91; PULSE 88; RESP 18; TEMP 36.8
[2023-02-23] MEDS: HYDROcodone/acetaminophen (*CRX) 10-325 MG TABLET 1 TAB PO (19:37)
[2023-02-23] MEDS: MEASLES,MUMPS,RUBELLA VACCINE 0.5 ML VIAL SUB-Q (19:42)
--- NOTE | 2023-02-24 08:58 | PM.OBDSVD ---
DS: Admitting Diagnosis Discharge Date 02/23/23 Admitting Diagnosis SROM Early labor DS: Discharge Diagnosis Discharge Diagnosis (1) Arrest of descent, delivered, current hospitalization: Code(s): O62.1 - Secondary uterine inertia Status: Acute (2) S/P section: Code(s): Z98.891 - History of uterine scar from previous surgery Status: Acute (3) GBS (group B Streptococcus carrier), +RV culture, currently : Code(s): O99.820 - Streptococcus B carrier state complicating Status: Acute (4) Gestational hypertension: Qualifiers: Trimester: third trimester Qualified Code(s): O13.3 - Gestational [-induced] hypertension without significant proteinuria, third trimester Code(s): O13.9 - Gestational [-induced] hypertension without significant proteinuria, unspecified trimester Status: Acute OB - DS: Summary OB Procedures : Ultrasound OB Procedures Intrapartum: low cervical, transverse OB Procedures: : None Peripartum Data Delivery Method: Section Procedures: Procedures Operation Date: 02/21/23 01:10 Actual Procedure Side Surgeon p Section Not Applicable Maryam Boggs MD complications: none 1: Gender: Female Disposition of : home Status at Discharge Functional status at discharge: independent ambulation Overall status at discharge: patient is back to baseline Time Spent with Patient Time attestation: Total time spent providing and/or coordinating discharge services: Time spent: Less than 30 minutes Exam Const: General: cooperative, comfortable, no acute distress and obese Orientation/consciousness: patient oriented x3 Resp: Effort & Inspection: normal respiratory effort Auscultation: clear to auscultation bilaterally Cardio: Rate: regular rate GI: Inspection: non-distended and incision (covered with clean dressing) GI Palp: No abdominal tenderness and Yes Soft to palpation Auscultation: normal bowel sounds : Other: fundus firm Skin: General skin exam: normal color Neuro: General: patient oriented x3 Extrem: General: normal to inspection Psych: Appearance: grossly normal Affect: normal affect Attitude: cooperative DS: Data Data Completed and Pending Completed studies during hospitalization: Pending at discharge 02/21/23 02:04 Surgical [PTH] Routine Discharge Plan Discharge Attending physician on discharge: Maryam Boggs Discharging Clinician: Ambrose,Maryam N. Anticipated Discharge Date/Time: 02/23/23 17:00 Patient Disposition: Home, Self-Care Activity: may shower and pelvic rest Diet: regular Discharge Instructions: No heavy lifting >10lbs for 6 weeks. Remove dressing on 02/27/23. Education: Mom and Baby Guide Given to: Mother Follow-Up: Call your delivering provider's office for an appointment to be seen in: 1 Week Mom and baby should come to the [facility] for the follow-up appointment. Appointment Date/Time: February 25, 2023 at 11:00 am What to expect at your follow-up visit: Physical Assessment Call [phone] if you are unable to keep your appointment time. BREAST CARE: * Wear a snug supportive bra. * For engorgement discomfort: Breast Feeding: * Apply warm moist washcloths * Express milk as needed to relieve engorgement * Wear loose clothing Bottle Feeding: * May apply ice packs * For sore nipples: * Identify correct latch-on * Apply warm moist washcloths before and after nursing * Air dry nipples after nursing * May apply Lansinoh cream to nipples ABDOMINAL INCISION: (if applicable) * Allow incision to air dry * Do NOT use lotions for powders on your incision * When showering, allow soap and water to run over the incision, but
[2023-02-25 11:00] VITALS: BP 132/81; PULSE 79; RESP 18; TEMP 36.6; O2SAT 99
== END 2023-02-23 20:50 | disposition home or self-care (01) | DRG 788 ==
LOC: ANHLDR 02:00 → ANHOB2 02-21 05:46
PROVIDERS: Admitting Provider Obstetrics & Gynecology Gynecology; Visit Provider Obstetrics & Gynecology
PROC: 10D00Z1 Extraction of Products of Conception, Low, Open Approach (ICD-10-PCS; CPT 59514; principal; 2023-02-21 01:10)
DX: O98.52 Other viral diseases complicating childbirth (principal); B00.9 Herpesviral infection, unspecified; O99.824 Streptococcus B carrier state complicating childbirth; O62.1 Secondary uterine inertia; O99.02 Anemia complicating childbirth; O42.92 Full-term premature rupture of membranes, unspecified as to length of time between rupture and onset of labor; O13.4 Gestational [pregnancy-induced] hypertension without significant proteinuria, complicating childbirth; Z3A.38 38 weeks gestation of pregnancy; Z37.0 Single live birth
CPT/HCPCS: 36415; 80053; 85025; 86592; 86850; 86900; 86901; 88307; 90710; A9270; J0290; J0690; J1885; J2270; J2274; J2405; J2590; J2795; J7120

== ENCOUNTER 2024-11-28 14:02 | Outpatient (CLI) | payer OTHER, SELFPAY ==
[2024-11-28 14:21] LABS: Basophils Absolute Auto 0.1 K/mm3 (0.0-0.1); Basophils Percent Auto 0.6 % (0.2-1.2); Eosinophils Absolute Auto 0.1 K/mm3 (0-0.3); Eosinophils Percent Auto 0.9 % (0-4.4); Hematocrit 39.3 % (37.0-47.0); Hemoglobin 12.5 g/dL (12.0-15.0); Immature Granulocyte Absolute 0.03 K/mm3 (0.00-0.031); Immature Granulocyte Percent A 0.3 % (0-0.5); Lymphocytes Absolute Auto 1.72 K/mm3 (0.9-3.2); Lymphocytes Percent Auto 19.4 % (18.3-44.2); Mean Corpuscular HGB Conc 31.8 g/dl (32-36); Mean Corpuscular Hemoglobin 28.9 pg (26-34); Mean Platelet Volume 8.4 fl (7.4-10.4); Monocytes Absolute Auto 0.5 K/mm3 (0.1-0.6); Monocytes Percent Auto 5.7 % (2.6-8.5); Neutrophils Absolute Auto 6.5 K/mm3 (1.3-6.7); Neutrophils Percent Auto 73.1 % (45.5-73.1); Platelet Count Result 445 k/mm3 (150-375); Red Blood Count 4.32 M/mm3 (4.2-5.4); Red Cell Distribution Width 12.9 % (11.5-14.5); White Blood Count 8.9 K/mm3 (4.5-10.0)
--- OUTSIDE RECORDS SUMMARY | 2024-11-28 14:46 | XMS_ITS | Encounter Summary ---
Author Organization [facility] Address [address] [place] [address] Care Team Providers Care Crab Catcher Name Role Phone AbdullahiUlysses lucero Tru Primary Care Provider Reason for Referral * Laboratory Services (Routine) - Open Specialty Diagnoses / Procedures Referred By Kristan t Referred To Contact Diagnoses Essential thrombocytosis (CMS/HCC) Procedures JAK2 MUTATION Cornel Russ MD [address] [place] [id number] Phone: tel: fax: Referral ID Status Reason Start Date Expiration Date Visits Re quested Visits Authorized [id number] Open 11/28/2024 12/29/2025 1 1 Reason for Visit * Reason Comments Establish Care Encounter Details Date Type Department Care Team (Late st Contact Info) Description 11/28/2024 1:30 PM CDT Office Visit [facility] Oncology and Hematology - [place] [address] [place] [id number] Cornel Russ MD [address] [place] [address] Essential thrombocytosis (CMS/HCC) (Primary Dx); Chronic anemia Social History Tobacco Use Types Packs/Day Years Used Date Smoking Tobacco: Never Smokeless Tobacco: Never Alcohol Use Standard Drinks/Week Comments Yes 0 (1 standard drink = 0.6 oz pur e alcohol) occasional Comments No Sex and Gender Information Value Date Recorded Sex Assigned at Not on file Legal Sex Female 9:56 AM CDT Gender Identity Not on file Sexual Orientation Not on file documented as of this encounter Last Filed Vital Signs Vital Sign Reading Time Taken Comments Blood Pressure 112/70 11/28/2024 1:35 PM CDT Pulse 72 11/28/2024 1:35 PM CDT Temperature 36.1 C (96.9 F) 11/28/2024 1:35 PM CDT Respiratory Rate 16 11/28/2024 1:35 PM CDT Oxygen Saturation 97% 11/28/2024 1:35 PM CDT Inhaled Oxygen Concentration - - Weight 71.3 kg (157 lb 3.2 oz) 11/28/2024 1:35 P M CDT Height 162.6 cm (5' 4) 11/28/2024 1:35 PM CDT Body Mass Index 26.98 11/28/2024 1:35 PM CDT documented in this encounter Progress Notes * Cornel Russ MD - 11/28/2024 1:39 PM CDT 60Hematology-oncology consult Note Requesting Physician Ulysses Dai, DO Primary Care Physician Ulysses Dai, DO Problem list Patient Active Problem List Diagnosis Code Iron deficiency anemia D50.9 Previous TREATMENT ? Measurable Disease ? Reason for Visit Lisa Hernandez is a 29 y.o. female who was referred for consultation for thrombocytosis. History of present illness Patient is a pleasant 29-year-old female who has been in good health except recurrent vaginal herpes infection and anxiety came into the office for elevated platelet count. Patient had labsdone in May 2024 that showed platelet of 472,000. Last labs from July 2024 showed plateletcount of 507,000. She denies any rash and diarrhea. Denies any infection and inflammation at the intermittent herpes infection. She denies any history of thromboembolic events including stroke and heart attack. Her menstrual bleeding is generally heavy for couple of days. She has a history of iron deficiency anemia but only taking multivitamin with iron. Denies any other new complaint. Past Medical History Past Medical History: Diagnosis Date Patient denies relevant medical history Recurrent herpes infection Anxiety Surgical History Past Surgical History: Procedure Laterality Date HX SECTION 2022 HX LEEP PROCEDURE Medications Current Outpatient Medications Medication Sig Dispense Refill cholecalciferol, Vitamin D3, (VITAMIN D3) 25 mcg (1,000 unit) Capsule Take by mouth daily. cyanocobalamin 1,000 mcg Tablet Take 1,000 mcg by mouth daily. ASCORBIC ACID, VITAMIN C, ORAL Take by mouth. multivitamin (DAILY-NANDA) tablet Take 1 Tablet by mouth daily. valACYclovir (VALTREX) 1 gram tablet spironolactone (ALDACTONE) 100 mg tablet Take 100 mg by mouth daily. No current facility-administered medications for this visit. Allergies No Known Allergies Immunizations: There is no immunization history on file for this patient. Family History Family History Problem Relation Name Age of Onset No Known Problems Father No Known Problems Mother No Known Problems Brother No Known Problems Brother Lung Cancer Maternal Grandfather Colon Cancer Paternal Grandfather Social History Social History Tobacco Use Smoking status: Never Smokeless tobacco: Never Substance Use Topics Alcohol use: Yes Comment: occasional Review of Systems Constitutional: Patient did not mention fever; no night sweats; no anorexia; no weight loss; no fatique NEENT: Patient did not mention headache; no change in vision; no change in hearing; no sore throat;no dysphagia Respiratory: Patient did not mention shortness of breath; no pleuritic chest pain; no cough; no hemoptysis Cardiac: Patient did not mention cardiac-like chest pain; no palpitations; no orthopnea; no PND; noDOE Breasts: Patient did not mention tenderness; no masses GI: Patient did not mention abdominal pain; no nausea; no vomiting; no diarrhea; no hematochezia; no melena : Patient did not mention dysuria; no frequency; no hesitancy; no hematuria CAP INSPECTOR: Musculosketetal: Patient did not mention bone pain; no arthralgia; no joint swelling; no myalgia; Skin: Patient did not mention pruritis; no rash; no petechiae; no ecchymoses Endocrine: Patient did not mention polydipsia; no polyuria; no unusual weight gain Neuro: Patient did not mention headache; no change in vision; no sensory changes; no muscle weakness; no confusion; no seizures Psych: Patient did not mention anxiety; no depression; Physical Exam Vitals: As per nursing note Constitutional: Well developed, well nourished, no acute distress, non-toxic appearance Teeth and gum. No signs of infection or swelling. Eyes: PERRL, conjunctiva normal HEENT: Atraumatic, external ears normal, nose normal, oropharynx moist, no pharyngeal exudates. no sinus tenderness Neck- normal range of motion, no tenderness, supple Respiratory: No respiratory distress, normal breath sounds, no rales, no wheezing Cardiovascular: Normal rate, normal rhythm, no murmurs, no gallops, no rubs GI: Soft, nondistended, normal bowel sounds, nontender, no splenomegaly, no hepatomegaly, no mass, no rebound, no guarding : No costovertebral angle tenderness Musculoskeletal: No edema, no tenderness, no deformities. Back- no tenderness Integument: Well hydrated, no rash, Digits and nails inspection normal Lymphatic: No lymphadenopathy noted Neurologic: Alert & oriented x 3, CN 2-12 normal, normal motor function, normal sensory function, no focal deficits noted Psychiatric: Speech and behavior appropriate ? labs No results found for this or any previous visit (from the past 24 hours). Labs from July 2024 showed platelet count of 507,000 WBC 6.8 hemoglobin 13.7 Pathology ? Imaging & Other Studies Performance Status? Assessment / Plan: ? Thrombocytosis. Patient is a pleasant 29-year-old female with history of recurrent vaginal herpes infection on valacyclovir along with history of anxiety disorder. She denies any history ofthromboembolic events including stroke and heart attack. She has a history of iron deficiency anemia due to heavy menstrual bleeding for at least couple of days. She is taking multivitamin. I have discussed the differential diagnosis of thrombocytosis that include reactive thrombocytosis and possibility of essential thrombocythemia which is unlikely at this age group. Likely her thrombocytosis due to iron deficiency and recurrent herpes infection. I will order the workup that will include CBC with differential, CMP, C-reactive protein, sedimentation rate and JAK2 mutation. Given her heavy menstrual bleeding history I will avoid aspirin. I will discuss results with patient in 2 weeks. I haveanswered all the questions to patient satisfaction. Anxiety. Patient is on sertraline. Recurrent herpes. Patient is on valacyclovir. Thank you very much for allowing me to participate in Lisa Hernandez's evaluation and management. Please feel free to contact if I can be of any further assistance in your patient???s carerequiring hematology or oncology evaluation. Sincerely, ? ? Cornel Russ M.D. cell TOBACCO COUNSELING She is not a tobacco/nicotine user. Cornel Russ MD ,11/28/2024 1:57 PM ? Total time spent 60 minutes, two third of the total time spent counseling patient [id number]. CC:?Ulysses Dai DO documented in this encounter Plan of Treatment Upcoming Encounters Date Type Department Care Team (Late st Contact Info) Description 12/17/2024 4:30 PM CDT Telephone Check Up [facility] Oncology and Hematology - [place] [address] [facility] [address] [place] [address] Cornel Russ MD [address] [place] [address] Scheduled Orders Name Type Priority Associated Diagnoses Orde r Schedule CBC WITH DIFFERENTIAL Lab Stat Essential thrombocytosis (CMS/HCC) Expected: 11/28/2024, Expires: 11/28/2025 COMPREHENSIVE METABOLIC PANEL Lab Stat Essential thrombocytosis (CMS/HCC) Expected: 11/28/2024, Expires: 11/28/2025 C-REACTIVE PROTEIN Lab Routine Essential thrombocytosis (CMS/HCC) Expected: 11/28/2024, Expires: 11/28/2025 SEDIMENTATION RATE Lab Routine Essential thrombocytosis (CMS/HCC) Expected: 11/28/2024, Expires: 11/28/2025 JAK2 MUTATION Lab Routine Essential thrombocytosis (CMS/HCC) Expected: 11/28/2024, Expires: 11/28/2025 FERRITIN Lab Routine Essential thrombocytosis (CMS/HCC) Expected: 11/28/2024, Expires: 11/28/2025 IRON, TIBC, AND PERCENT SATURATION Lab Routine Chronic anemia Expected: 11/28/2024, Expires: 11/28/2025 documented as of this encounter Visit Diagnoses Diagnosis Essential thrombocytosis (CMS/HCC)- Primary Essential thrombocythemia Chronic anemia Anemia, unspecified documented in this encounter Care Teams Crab Catcher Relationship Specialty Start Date End Date Ulysses Dai DO [address] [place] [address] PCP - General Internal Medicine 11/28/24 documented as of this encounter
--- OUTSIDE RECORDS SUMMARY | 2024-11-28 14:46 | XMS_ITS | Clinical Summary ---
Author Organization [facility] Address [address] [place] [address] Care Team Providers Care Senior C Web Developer Name Role Phone Unavailable Primary Care Provider Unavailabl e Source Comments [facility],non-owned Affiliates and Associated Physician Practices is amultiple site organization consisting of ambulatory clinics and hospital sitesin [place], [place], [place] and [place]. This disclosure is being madepursuant to the Care Everywhere program and may not contain all information available regarding this patient. Last updated 18.[facility] [employer] Social History Tobacco Use Types Packs/Day Years Used Date Smoking Tobacco: Never Assessed Comments Unknown Sex and Gender Information Value Date Recorded Sex Assigned at Not on file Legal Sex Female 1:43 PM CDT Gender Identity Not on file Sexual Orientation Not on file Plan of Treatment Health Maintenance Due Date Last Done Comments PAP SMEAR 1994 HIV SCREENING 2009 HEPATITIS C SCREENING 06/24/2012 DTAP/TDAP/TD VACCINES (1 - Tdap) 2013 HEPATITIS B VACCINE (1 of 3 - 19+ 3-dose series) 2013 COVID-19 VACCINE (2023-2 5 season) 2024 DEPRESSION SCREENING 06/26/2024 INFLUENZA VACCINE (Season Ended) 2025 ZOSTER VACCINE (1 of 2) 2044 HIB VACCINE Aged Out No longer eligi ble based on patient's age to complete this topic HPV VACCINE Aged Out No longer eligi ble based on patient's age to complete this topic MENINGOCOCCAL (Group B) VACC INE SHARED DECISION-MAKING Aged Out No longer eligibl e based on patient's age to complete this topic MENINGOCOCCAL GROUPS A/C/Y/W VACCINE Aged Out No longer eligible b ased on patient's age to complete this topic PNEUMOCOCCAL VACCINE Aged Out No long er eligible based on patient's age to complete this topic Insurance [facility]
--- OUTSIDE RECORDS SUMMARY | 2024-11-28 14:46 | XMS_ITS | Clinical Summary ---
Author Organization [facility] Markbradleyderek Joyce Address [address] [place] [address] Care Team Providers Care Tank Car Repairer Name Role Phone KekeUlysses mcneal Tru LIN Primary Care Provider Allergies No known active allergies Medications valACYclovir (VALTREX) 1 gram tablet 01/06/2021 Active spironolactone (ALDACTONE) 100 mg tablet Take 100 mg by mouth daily. Active cholecalciferol, Vitamin D3, (VITAMIN D3) 25 mcg (1,000 unit) Capsule Take by mouth daily. Active cyanocobalamin 1,000 mcg Tablet Take 1,000 mcg by mouth daily. Active ASCORBIC ACID, VITAMIN C, ORAL Take by mouth. Active multivitamin (DAILY-NANDA) tablet Take 1 Tablet by mouth daily. Active Active Problems Problem Noted Date Diagnosed Date Iron deficiency anemia 03/04/2021 Encounters Date Type Department Care Team Description 11/28/2024 1:30 PM CDT Office Visit [facility] Oncology and Hematology - [place] [address] [address] Cornel Russ MD Essential thrombocytosis (CMS/HCC) (Primary Dx); Chronic anemia from Last 3 Months Family History Medical History Relation Name Comments No Known Problems Brother 1 No Known Problems Brother 2 No Known Problems Father Lung Cancer Maternal Grandfather No Known Problems Mother Colon Cancer Paternal Grandfather Relation Name Status Comments Brother 1 Alive Brother 2 Alive Father Alive Maternal Grandfather Mother Alive Paternal Grandfather Social History Tobacco Use Types Packs/Day Years Used Date Smoking Tobacco: Never Smokeless Tobacco: Never Alcohol Use Standard Drinks/Week Comments Yes 0 (1 standard drink = 0.6 oz pur e alcohol) occasional Comments No Sex and Gender Information Value Date Recorded Sex Assigned at Not on file Legal Sex Female 9:56 AM CDT Gender Identity Not on file Sexual Orientation Not on file Last Filed Vital Signs Vital Sign Reading [...] Mass Index 26.98 11/28/2024 1:35 PM CDT Plan of Treatment Upcoming Encounters Date Type Department Care Team (Late st Contact Info) Description 12/17/2024 4:30 PM CDT Telephone Check Up [facility] Oncology and Hematology - [place] [address] [facility] [address] [place] [address] Cornel Russ MD [address] [facility] [address] [place] [address] Health Maintenance Due Date Last Done Comments DTAP/TDAP/TD VACCINES (1 - Tdap) 2013 HEPATITIS B VACCINES (1 of 3 - 19+ 3-dose series) 2013 HPV/Cotest (21-29) 2015 INFLUENZA VACCINE (#1) 2024 Preventative Visit- Commercial 06/26/2024 CERVICAL CANCER SCREENING 2024 HPV/Cotest (30-65) 2024 PAP SMEAR 2024 HPV VACCINES Aged Out No longer eligi ble based on patient's age to complete this topic Insurance [employer] [facility] [id number] [facility] Address: [facility] [id number] [place] [address] Care Teams Tank Car Repairer Relationship Specialty Start Date End Date Ulysses Dai DO [address] [facility] [address] [place] [address] PCP - General Internal Medicine 11/28/24
[2024-11-28 16:40] LABS: Erythrocyte Sedimentation Rate 9 mm/hr (0-20)
[2024-11-28 18:55] LABS: Alanine Aminotransferase 29 U/L (6-35); Albumin Level 4.6 g/dL (3.5-5.1); Alkaline Phosphatase 70 U/L (38-126); Anion Gap 7 mmol/L (4-12); Aspartate Amino Transferase 47 U/L (14-36); Bilirubin,Total 0.3 mg/dL (0.2-1.3); Blood Urea Nitrogen 9 mg/dL (7-17); CRP < 0.5 mg/dL (<1.0); Calcium 9.7 mg/dL (8.4-10.2); Carbon Dioxide 28 mmol/L (22-30); Chloride 104 mmol/L (98-107); Estimated Glomerular Filt Rate > 60; Glucose 90 mg/dL (65-110); Sodium 139 mmol/L (137-145); Total Protein 7.6 g/dL (6.3-8.2)
[2024-11-28 18:56] LABS: Iron 37 ug/dL (37-170); Percent Iron Saturation 10 % (20-50)
== END 2024-11-28 14:03 | disposition home or self-care (01) ==
LOC: ANHLAB 14:03
PROVIDERS: PCP Internal Medicine; Visit Provider Internal Medicine Hematology & Oncology
DX: D47.3 Essential (hemorrhagic) thrombocythemia (principal)
CPT/HCPCS: 36415; 80053; 81270; 82728; 83540; 83550; 85025; 85652; 86140

== ENCOUNTER 2025-03-22 00:06 | Emergency (ER) | payer OTHER, SELFPAY ==
--- NOTE | ~2025-03-22 | US_ITS ---
EXAMINATION: US OB <= 14 weeks fetus DATE: 03/22/2025 07:20 INDICATION: Nausea. TECHNIQUE: Real-time transabdominal pelvic ultrasound was performed. COMPARISON: None. FINDINGS: The uterus measures 13.0 x 4.6 x 7.6 cm. There is an intrauterine gestational sac. A yolk sac is identified. The crown rump length measures 1.6 cm, which correlates with an estimated gestational age of 8 weeks and 0 day(s) (+/-) 5 day(s). heart motion is identified measuring 159 beats per minute (bpm) by M-mode Doppler. The right ovary measures 3.3 x 1.0 x 1.5 cm. The left ovary measures 2.4 x 1.2 x 2.0 cm. There is no free fluid in the pelvis. IMPRESSION: 1. Single living intrauterine gestation with estimated date of delivery of 11/01/2025. Reviewed, dictated and finalized at location E. IMPRESSION: 1. Single living intrauterine gestation with estimated date of delivery of 11/01.
[2025-03-22 00:09] VITALS: BP 139/81; PULSE 109; RESP 20; TEMP 37.1; O2SAT 100
[2025-03-22 00:56] LABS: BEDSIDEPREGUCG Positive (Negative)
[2025-03-22 01:00] LABS: Hematocrit 38.7 % (37.0-47.0); Hemoglobin 12.2 g/dL (12.0-15.0); Immature Granulocyte Percent A 0.2 % (0-0.5); Lymphocytes Absolute Auto 1.43 K/mm3 (0.9-3.2); Mean Corpuscular HGB Conc 31.5 g/dl (32-36); Mean Corpuscular Hemoglobin 27.7 pg (26-34); Mean Corpuscular Volume 87.8 fl (80-100); Nucleated Red Blood Cells Absolute Auto 0.000 K/mm3 (0.0-0.012); Nucleated Red Blood Cells Perc 0.0 % (0.0-0.2); Platelet Count Result 426 k/mm3 (150-375); Red Blood Count 4.41 M/mm3 (4.2-5.4); White Blood Count 9.7 K/mm3 (4.5-10.0)
[2025-03-22 01:10] LABS: Add Urine Microscopic? YES; Alanine Aminotransferase 24 U/L (6-35); Albumin Level 4.7 g/dL (3.5-5.1); Alkaline Phosphatase 61 U/L (38-126); Anion Gap 9 mmol/L (4-12); Appearance Urine Cloudy (Clear); Aspartate Amino Transferase 24 U/L (14-36); Bilirubin,Total 0.5 mg/dL (0.2-1.3); Blood Urea Nitrogen 7 mg/dL (7-17); Calcium 9.0 mg/dL (8.4-10.2); Carbon Dioxide 22 mmol/L (22-30); Chloride 104 mmol/L (98-107); Estimated CRCL calculation 122 ml/min; Estimated Glomerular Filt Rate > 60; Glucose 99 mg/dL (65-110); Glucose Urine UA Negative (Negative); Leukocyte Esterase Ur Trace LEU/UL (Negative); Lipase 58 U/L (23-300); Need Manual Microscopic Reviewed; Nitrate Urine Negative (Negative); Non Pathogenic Casts 0-2; Potassium 3.7 mmol/L (3.4-5.0); Sodium 135 mmol/L (137-145); Specific Grav Ur 1.027 (1.001-1.035); Total Protein 7.9 g/dL (6.3-8.2)
--- NOTE | 2025-03-22 01:22 | PC.NURSE ---
Called radiology to request call in [place] for r/o ectopic
--- OUTSIDE RECORDS SUMMARY | 2025-03-22 01:53 | XMS_ITS | Clinical Summary ---
Author Organization [facility] Address [address] [place] [address] Care Team Providers Care Dairy Bar Manager Name Role Phone None, Provider MD Primary Care Provider Unavaila ble Allergies No known active allergies Medications nitrofurantoin, macrocrystal-monoh ydrate, 100 MG capsule 01/29/2020 Active Active Problems No known active problems Family History Medical History Relation Comments No Known Problems Father No Known Problems Mother Relation Status Comments Father Mother Social History Tobacco Use Types Packs/Day Years Used Date Smoking Tobacco: Never Smokeless Tobacco: Never Alcohol Use Standard Drinks/Week Comments Yes 0 (1 standard drink = 0.6 oz pur e alcohol) socially PHQ-2 Answer Date Recorded PHQ-2 Score - If the patient scores above 3, please move on to questions 3-9 0 02/14/2020 Comments Unknown Sex and Gender Information Value Date Recorded Sex Assigned at Not on file Legal Sex Female 12:46 PM CDT Gender Identity Not on file Sexual Orientation Not on file Last Filed Vital Signs Vital Sign Reading Time Taken Comments Blood Pressure 120/78 02/14/2020 3:05 PM CDT Pulse - - Temperature 36.7 C (98.1 F) 02/14/2020 3:05 PM CDT Respiratory Rate - - Oxygen Saturation - - Inhaled Oxygen Concentration - - Weight 52.5 kg (115 lb 12.8 oz) 02/14/2020 3:05 PM CDT Height 161.3 cm (5' 3.5) 02/14/2020 3:05 PM CDT Body Mass Index 20.19 02/14/2020 3:05 PM CDT Plan of Treatment Health Maintenance Due Date Last Done Comments Cervical Cancer Screening Pa p Smear (Age 30 to 64) Every 3 Years 1994 Annual Physical 1997 Hepatitis C 2012 DTaP, Tdap and Td Vaccines ( 1 - Tdap) 2013 Hepatitis B Vaccines (1 of 3 - 19+ 3-dose series) 2013 HPV Vaccines (1 - 3-dose SCD M series) 2021 Cervical Cancer Screening Pa p with HPV Testing (Age 30 to 64) Every 5 Years 2024 Cervical Cancer Screening with HPV 2024 COVID-19 Vaccine (1 - 2023-2 5 season) 2025 Meningococcal B Vaccine Aged Out No l onger eligible based on patient's age to complete this topic Meningococcal Vaccine Aged Out No jonnie anthony eligible based on patient's age to complete this topic Pneumococcal Vaccine: Pediat rics (0 to 5 Years) and At-Risk Patients (6 to 49 Years) Aged Out No longer eligible b ased on patient's age to complete this topic RSV Immunizations Under 20 Months Aged Out No longer eligible based on patient's age to complete this topic Insurance [employer] Care Teams Dairy Bar Manager Relationship Specialty Start Date End Date None, Provider, PCP - General 02/14/20
--- OUTSIDE RECORDS SUMMARY | 2025-03-22 01:53 | XMS_ITS | Patient Health Record ---
Author Organization [facility] As Porphyrio Address [address] [place] [address] Care Team Providers Care Stitching Department Supervisor Name Role Phone SARA BLAS-TAVIA Cespedes Primary Care Provider Jamil Dacosta Unavailable [phone] Beverley Burgos Unavailable [phone] Paola Mariee Unavailable [phone] Allergies No Known Allergies Reason For Referral No Information Medications Medication SIG (Take, Route, Frequency, Duration) Notes Start Date End Date Status Sertraline HCl 100 MG Tablet 2 tablet Orally Once a day; Duration: 30 days dose increase 02/11/2025 Active valACYclovir HCl 500 MG Tablet Oral; Duration: 30 Days Active Vitamin C Active Vitamin B12 Active Vitamin D Active Probiotic Active Social History Tobacco Use: Social History Observation Description Date Details (start date - stop date) Never Smoker NA - NA Sex Assigned At : Social History Observation Description Sex Assigned At Female Social History Miscellaneous: Social Info Question Answer Notes Safety issues: Are there any firearms in the house? No Social History Social Info Question Answer Notes Household: Marital Status: Single Number of Adults in household: 2 Number of Children in Household: 1 Level of Education: Finished High School Drug/Alcohol: Social Info Question Answer Notes Drugs Have you used drugs other than those for medical reasons in the past 12 months? No AUDIT-C (Standard) Interpretation Positive Did you have a drink containing alcohol in the p ast year? Yes How often did you have six or more drinks on one occasion in the past year? Never (0 point) How many drinks did you have on a typical day when you were drinking in the past year? 1 or 2 drinks (0 point) How often did you have a drink containing alcohol in the past year? 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 Problems Problem Type SNOMED Code ICD Code Onset Dates Problem Status W/U Status Risk Notes Problem Vitamin D deficiency (71936954) Vitamin D deficiency, unspecified (E55.9) Active confirmed Problem Generalized anxiety disorder (12937890) Generalized anxiety disorder (F41.1) Active confirmed Problem Insomnia disorder related to another mental disorder (63504676) Insomnia due to other mental disorder (F51.05) Active confirmed Problem Thrombocytosis (disorder) (8068535) Thrombocytosis, unspecified (D75.839) Active confirmed Problem Iron deficiency anemia (45387979) Iron deficiency anemia (D50.9) Active confirmed Vital Signs Heart Rate 90 /min 02/11/2025 Height-cm 162.56 cm 02/11/2025 Blood pressure diastolic 79 mm Hg 02/11/2025 Weight-kg 75.39 kg 02/11/2025 Height 64 in 02/11/2025 Blood pressure systolic 117 mm Hg 02/11/2025 Weight 166.2 lbs 02/11/2025 BMI 28.53 kg/m2 02/11/2025 Encounters Encounter Location Date Provider Diagnosis [facility] [address] [address] 10/10/2024 Jamil Dubose Generalized anxiety disorder F41.1 ; Encounter for screening for depression Z13.31 ; Encounter for screening for cardiovascular disorders Z13.6 ; Insomnia due to other mental disorder F51.05 and Iron deficiency anemia D50.9 [facility] [place] [address] [address] 11/12/2024 Jamil Dubose Encounter for screening for depression Z13.31 ; Encounter for screening for cardiovascular disorders Z13.6 ; Generalized anxiety disorder F41.1 ; Insomnia due to other mental disorder F51.05 and Iron deficiency anemia D50.9 [facility] [place] [address] [address] 01/15/2025 Jamil Dubose Generalized anxiety disorder F41.1 ; Insomnia due to other mental disorder F51.05 and Iron deficiency anemia D50.9 [facility] [address] [place] [address] 02/11/2025 Jamil Dubose Generalized anxiety disorder F41.1 ; Insomnia due to other mental disorder F51.05 and Iron deficiency anemia D50.9 [facility] [address] [place] [address] 02/26/2025 Beverley Burgos Generalized anxiety disorder F41.1 [facility] [address] [place] [address] 01/15/2025 Jamil Dubose [facility] [address] [place] [address] 09/06/2024 Paola Mariee [facility] [address] [place] [address] 09/06/2024 Jamil Dubose [facility] [address] [place] [address] 09/09/2024 Jamil Dubose [facility] [address] [place] [address] 09/10/2024 Jamil Dubose [facility] [address] [place] [address] 12/25/2024 Jamil Dubose Generalized anxiety disorder F41.1 Assessments Encounter Date Diagnosis (ICD Code) Assessment Notes Treatment Notes Treatment Clinical Notes Section Notes 10/10/2024 Generalized anxiety disorder (ICD-10 - F41.1) 12/25/2024 Generalized anxiety disorder (ICD-10 - F41.1) 01/15/2025 Generalized anxiety disorder (ICD-10 - F41.1) 01/15/2025 Insomnia due to other mental disorder (ICD-10 - F51.05) practice sleep hygiene 11/12/2024 Encounter for screening for depression (ICD-10 - Z13.31) 02/11/2025 Generalized anxiety disorder (ICD-10 - F41.1) 02/26/2025 Generalized anxiety disorder (ICD-10 - F41.1) 02/11/2025 Insomnia due to other mental disorder (ICD-10 - F51.05) practice sleep hygiene 01/15/2025 Iron deficiency anemia (ICD-10 - D50.9) 10/10/2024 Encounter for screening for depression (ICD-10 - Z13.31) 11/12/2024 Encounter for screening for cardiovascular disorders (ICD-10 - Z13.6) 10/10/2024 Encounter for screening for cardiovascular disorders (ICD-10 - Z13.6) 11/12/2024 Generalized anxiety disorder (ICD-10 - F41.1) 02/11/2025 Iron deficiency anemia (ICD-10 - D50.9) 11/12/2024 Insomnia due to other mental disorder (ICD-10 - F51.05) practice sleep hygiene 10/10/2024 Insomnia due to other mental disorder (ICD-10 - F51.05) practice sleep hygiene 10/10/2024 Iron deficiency anemia (ICD-10 - D50.9) 11/12/2024 Iron deficiency anemia (ICD-10 - D50.9) 10/10/2024 Other recommend counseling Lisa Hernandez is a [id number] mother with a history of anxiety, irritability, and possible depression, presenting with concerns about mood swings, intrusive thoughts, and difficulty controlling anger. Generalized Anxiety Disorder Assessment: Patient reports longstanding anxiety symptoms, including feeling on edge, restlessness, and intrusive thoughts. She experiences difficulty in social situations, particularly with meeting new people and being in large crowds. The patient has a history of panic attacks, with one occurring shortly after the of her daughter in 2019. These symptoms are consistent with Generalized Anxiety Disorder (EUGENIO). The patient's anxiety appears to be impacting her daily functioning and quality of life. Plan: - Discontinue venlafaxine 75 mg: - Taper to 37.5 mg daily for one week, then discontinue - Informed patient about potential discontinuation effects (e.g., head zaps, anxiety, racing heart) - Initiate sertraline: - Start at 25 mg PO daily for one week - Increase to 50 mg PO daily for one week - Then increase to 100 mg PO daily - Recommend counseling: - Offered options for in-house counselors or insurance-covered providers - Suggested virtual counseling as an alternative - Focus on anxiety management, addressing intrusive thoughts, and sleep techniques - Follow up to assess response to medication change and adherence to counseling recommendation Mood Instability with Irritability Assessment: Patient describes episodes of irritability, particularly towards her boyfriend, and difficulty controlling her anger. She reports occasional sadness lasting 1-2 days without clear triggers. There is a history of possible depression following the of her daughter in 2019. The patient denies current suicidal ideation or self-harm behaviors. While some hypomanic symptoms were endorsed, they do not appear to meet full criteria for hypomania in terms of duration or severity. The mood instability and irritability may be related to her anxiety disorder or could potentially indicate an underlying mood disorder. Plan: - Monitor mood symptoms during medication transition from venlafaxine to sertraline - Educate patient on mood tracking and identifying triggers for irritability - Encourage use of stress-reduction techniques - Reassess mood symptoms and irritability at follow-up appointment Sleep Disturbance Assessment: Patient reports chronic difficulty falling asleep. Previous attempts with melatonin were ineffective. The sleep disturbance may be related to her anxiety symptoms or could be an independent issue. Plan: - Discuss sleep hygiene techniques during counseling sessions - Monitor sleep quality during medication transition - Reassess sleep patterns at follow-up appointment History of Iron Deficiency Anemia and Vitamin D Deficiency Assessment: Patient has a history of iron deficiency anemia and vitamin D deficiency. Recent blood work has shown thick blood, and the patient has an upcoming appointment with a revit drafter in November. Plan: - Continue current vitamin regimen: multivitamin, vitamin C, B12, and vitamin D - Await hematology consultation results - Review most recent blood work at next appointment the note is transcribed using speech recognition software. It is a reflection of a visit with the patient. It might have some inaccuracy, including medication names and transcribing errors, though efforts have been made to correct them. 11/12/2024 Marilu Hernandez presents with ongoing irritability, intrusive thoughts, and mood fluctuations, recently transitioned from venlafaxine to sertraline for management of these symptoms. Mood Disorder with Irritability and Intrusive Thoughts Assessment: Patient reports persistent irritability, particularly towards her boyfriend, and previously experienced intrusive thoughts and images. She notes a slight improvement in intrusive thoughts since starting sertraline, but irritability remains a concern. The patient has been transitioning from venlafaxine to sertraline over the past month, with a current dose of 100 mg daily for approximately 2 weeks. The medication change appears to be well-tolerated, with no significant withdrawal effects noted from discontinuing venlafaxine. There has been a reduction in panic attacks, with none reported since the last visit. Plan: - Continue sertraline 100 mg daily - Reassess effectiveness of sertraline in 2-4 weeks - Recommend couples counseling - Consider individual counseling for the patient Relationship Stress Assessment: Patient reports ongoing conflicts with her boyfriend, describing him as a source of irritation. The relationship issues appear to be contributing to her mood symptoms and overall stress levels. Neither the patient nor her partner are currently engaged in individual or couples counseling. Plan: - Recommend couples counseling to address relationship conflicts - Encourage partner to seek medical care for his own health Sensory Sensitivities Assessment: Patient reports heightened sensitivity to certain stimuli, particularly the sound of people eating. This sensitivity appears to contribute to her irritability and may be exacerbated by her current mood symptoms. Plan: - Monitor for changes in sensory sensitivities with ongoing medication management - Consider discussing coping strategies for managing sensory triggers in future sessions or during counseling the note is transcribed using speech recognition software. It is a reflection of a visit with the patient. It might have some inaccuracy, including medication names and transcribing errors, though efforts have been made to correct them. 01/15/2025 Other Lisa Hernandez, female patient with a history of anxiety and intrusive thoughts, presenting for follow-up after medication adjustment. Generalized Anxiety Disorder with Intrusive Thoughts Assessment: Patient reports improvement in anxiety symptoms and intrusive thoughts since increasing sertraline to 100 mg daily approximately 2 months ago. She notes only two instances of increased anxiety, one of which was triggered during a trip to [place]. Day-to-day anxiety is described as more manageable, and she denies experiencing panic attacks. However, irritability persists, particularly towards her boyfriend. Given the partial response to current treatment, we discussed further increasing the sertraline dosage to optimize symptom control. Plan: - Increase sertraline to 150 mg PO daily - Informed patient to monitor for potential side effects, particularly emotional flattening - Refer to counseling services - Patient expressed interest; will send message to schedule - Follow-up appointment in 1 month to assess response to medication adjustment the note is transcribed using speech recognition software. It is a reflection of a visit with the patient. It might have some inaccuracy, including medication names and transcribing errors, though efforts have been made to correct them. 02/11/2025 Marilu Hernandez presents for follow-up of anxiety and intrusive thoughts, currently on sertraline 150 mg with reported improvement. Generalized Anxiety Disorder with Intrusive Thoughts Assessment: Patient reports significant improvement in anxiety symptoms and complete resolution of intrusive thoughts since increasing sertraline to 150 mg approximately one month ago. She describes feeling happier and more calm in certain situations and notes that something kind of switched. Day-to-day anxiety has improved, allowing her to engage in activities and go places. Irritability has decreased, and no recent panic attacks were reported. Despite these improvements, the patient indicates that her symptoms could be a little bit better, suggesting room for further optimization of treatment. Plan: - Increase sertraline to 200 mg PO daily - Patient to start counseling on February 26 as previously arranged - Follow-up appointment scheduled in one month Insomnia Assessment: Patient continues to experience difficulty falling asleep, reporting it still takes me a while to fall asleep. This suggests persistent sleep onset insomnia, which may require further evaluation and management. Plan: - Continue to monitor sleep patterns - Reassess sleep issues at next follow-up appointment the note is transcribed using speech recognition software. It is a reflection of a visit with the patient. It might have some inaccuracy, including medication names and transcribing errors, though efforts have been made to correct them. Plan Of Treatment No Information Insurance Providers Payer Name Payer Address Payer Phone Subscriber Number Group Number Insured Name Patient Relationship to Insured Coverage Start Date Coverage End Date [facility] [address] [place] [address] [id number] Mary Lisa Self - patient is the insured Medical (General) History Medical History History ICD Code abdominal aortic aneurysm: No atrial fibrillation: No chronic fatigue syndrome: No essential tremor: No hyperlipidemia: No hypertension: No Parkinson's disease: No restless leg syndrome: No stroke: No subdural hematoma: No type 1 diabetes mellitus: No type 2 diabetes mellitus: No vitamin B12 deficiency: Yes vitamin D deficiency: Yes Surgical History Surgery Date(Month/Year) 2022
--- OUTSIDE RECORDS SUMMARY | 2025-03-22 01:53 | XMS_ITS | Clinical Summary ---
Author Organization [facility] Address [address] [place] [address] Care Team Providers Care Fur Finisher Name Role Phone Ulysses Dai DO Primary Care Provider Allergies No known active [...] Encounters Date Type Department Care Team Description 03/11/2025 External Device Data ST[facility] ABSTRACTION Provider, Abstract 01/29/2025 External Device Data [facility] ABSTRACTION Provider, Abstract 01/08/2025 External Device Data [facility] ABSTRACTION Provider, Abstract 01/07/2025 External Device Data [facility] ABSTRACTION Provider, Abstract 12/24/2024 External Device Data [facility] ABSTRACTION Provider, Abstract 12/24/2024 External Device Data [facility] ABSTRACTION Provider, Abstract from Last 3 Months Family History Medical [...] Care Team (Late st Contact Info) Description 04/03/2025 1:15 PM CDT Office Visit [facility] Oncology and H[facility]ology - [place] [address] [place] [address] [facility] [address] [place] [address] Cornel Russ MD [address] [facility] [address] [place] [address] Health Maintenance Due Date Last Done Comments DTAP/TDAP/TD VACCINES (1 - Tdap) 2013 HEPATITIS B VACCINES (1 of 3 - 19+ 3-dose series) 09/2013 HPV/Cotest (21-29) 2015 HPV VACCINES (1 - 3-dose SCDM series) 2021 CERVICAL CANCER SCREENING 2024 HPV/Cotest (30-65) 2024 PAP SMEAR 2024 INFLUENZA VACCINE (#1) 2025 Insurance [employer] [facility] [employer] [id number] Care Teams Fur Finisher Relationship Specialty Start Date End Date Ulysses Dai DO [address] [facility] [address] [place] [address] PCP - General Internal Medicine 11/28/24
--- NOTE | 2025-03-22 03:07 | ED.GENADULT ---
HPI - General Adult General Chief complaint: Nausea/Vomiting/Diarrhea Stated complaint: vomiting, Time Seen by Provider: 03/22/25 01:45 History of Present Illness HPI narrative: Patient is a 29-year-old female who presents to the emergency department this evening complaining of nausea and vomiting and inability to keep fluids down. States she is approximately 7 weeks . Has not seen her OB yet, in the past she has seen Dr. Boggs but states that for this she is likely going to be seeing Dr. Fay and she has an upcoming appointment next week. States that she was prescribed Reglan for her nausea/vomiting but states that has not been working. Denies any abdominal pain, cramping, any vaginal bleeding or discharge. Denies any urinary symptoms. No additional symptoms or concerns at this time. Related Data Home Medications ?Medication ?Instructions ?Recorded ?Confirmed ?Last Taken ?Type ascorbic acid (vitamin C) 125 mg mg PO 08/29/24 10/17/24 Unknown History capsule vitamin B12 0.5 mg-folic acid 1 mg 1 tablet PO DAILY 08/29/24 10/17/24 Unknown History tablet multivitamin (Daily Multi-Vitamin 1 tablet PO DAILY 10/16/24 10/17/24 Unknown History tablet) sertraline 25 mg tablet 25 mg PO DAILY 10/16/24 10/17/24 Unknown History venlafaxine 37.5 mg tablet 37.5 mg PO DAILY 10/16/24 10/17/24 Unknown History Allergies Allergy/AdvReac Type Severity Reaction Status Date / Time No Known Allergies Allergy Verified 03/22/25 00:12 Review of Systems Review of Systems: All systems are reviewed and are negative unless stated otherwise in the HPI. [facility] Past Medical History Medical History Contraception management HSV (herpes simplex virus) anogenital infection Vaginal yeast infection Gestational hypertension Arrest of descent, delivered, current hospitalization GBS (group B Streptococcus carrier), +RV culture, currently SROM (spontaneous rupture of membranes) Eczema Overweight (BMI 25.0-29.9) Suppression of menses Anemia Incomplete Vulvar pruritus Abnormal uterine bleeding Surgical History Surgical History H/O section 01/2023 S/P section History of dilation and curettage Family History Family History Mother Multiple sclerosis Sibling Arrhythmia Other Diabetes mellitus Heart disease Lung cancer Social History Social History Smoking status: Never smoker Alcohol intake: current Alcohol use details: rarely Substance use: never Substance use type: does not use Do You Feel Safe in your Home?: Yes Current Housing: Decline to Answer Concerned About Future Housing: Decline to Answer Difficulty Paying Gas/Electric Bills: Decline to Answer Difficulty Paying for Meds: Decline to Answer Currently Unemployed: Decline to Answer Education: Decline to Answer Difficulty w/ Childcare or Family Care: Decline to Answer Living arrangements: with family Occupation/Education: occupation Additional occupation/education comments: [employer] Gender identity (if verbalized by the patient): Female Sexual Orientation (if Verbalized by the Patient): Straight or Heterosexual Spiritual care concerns: No Exam Narrative: General: Alert, awake, afebrile, in no acute distress. HEENT: PERRL, no rhinorrhea, no post nasal drip, oropharynx clear. Neck: Trachea midline, no JVD, no lymphadenopathy. Cardiovascular: Regular rate and rhythm, no murmurs, rubs or gallops, no peripheral edema. Respiratory: Clear to auscultation bilaterally, no tachypnea, no wheezing, no rhonchi, no rubs, no respiratory distress. Abdomen: Soft, nontender, nondistended, no rebound, no guarding, no peritoneal signs. Musculoskeletal: No joint swelling or deformity, normal muscle tone. Skin: No rashes or petechia, no signs of infection. Psychiatric: Alert and oriented, normal behavior and judgment for situation. Neurological: Alert and oriented to person, place, and time. Follows all commands. No focal deficits, speech is clear and fluent. Course Vital Signs Vital signs: Vital Signs Temperature 98.7 F 03/22/25 00:09 Pulse Rate 109 H 03/22/25 00:09 Respiratory Rate 20 03/22/25 00:09 Blood Pressure 139/81 03/22/25 00:09 Pulse Oximetry 100 03/22/25 00:09 Oxygen Delivery Room Air 03/22/25 00:09 Temperature 98.7 F 03/22/25 00:09 Pulse Rate 109 H 03/22/25 00:09 Respiratory Rate 20 03/22/25 00:09 Blood Pressure 139/81 03/22/25 00:09 Pulse Oximetry 100 03/22/25 00:09 Oxygen Delivery Room Air 03/22/25 00:09 Medical Decision Making MDM Narrative Medical decision making narrative: The patient was evaluated by myself in the emergency department. History is obtained from patient who is an independent historian and physical exam was performed. External medical records were reviewed at this time. IV was established and pertinent tests were ordered. Patient was administered 1 L IV fluid bolus with normal saline, 10 mg of IV Reglan. Laboratory results obtained revealing no acute process. Imaging studies obtained included pelvic ultrasound was transvaginal which was independently interpreted by me revealing single live intrauterine dated 8 weeks 0 days, which is pending final radiology interpretation. Urinalysis did reveal 2+ bacteria, 11-20 RBCs, trace leuk esterases and 1+ ketones. Patient was administered 1 g of IV Rocephin at this time. She was informed that she will be sent home on an oral antibiotic for her bacteriuria. Differential diagnosis considerations include ectopic , hyperemesis gravidarum, dehydration, electrolyte derangements, UTI. Comorbidities impacting this visit include none. I have evaluated and discussed social determinants of health with the patient that could potentially impact subsequent diagnosis and treatment plans. On repeat assessment of the patient, reevaluation revealed that the patient is doing well and is in no acute distress. Patient symptoms have improved since she arrived to our emergency department. Repeat vital signs were all reviewed and noted to be stable. Differential diagnosis and treatment plan were discussed with the patient at bedside. Patient agrees with discussion and after shared medical decision making agrees with discharge. All questions were answered to the patient's satisfaction. Patient will follow up with her OB in 3-5 days. Script for Zofran and cephalexin was sent patient home stated take as prescribed. Patient was provided with strict return precautions and instructed to return to the emergency department if any new or worsening symptoms develop. The patient was discharged in stable condition. Vital Signs Vital Signs: Vital Signs Temperature 98.7 F 03/22/25 00:09 Pulse Rate 109 H 03/22/25 00:09 Respiratory Rate 20 03/22/25 00:09 Blood Pressure 139/81 03/22/25 00:09 Pulse Oximetry 100 03/22/25 00:09 Oxygen Delivery Room Air 03/22/25 00:09 Temperature 98.7 F 03/22/25 00:09 Pulse Rate 109 H 03/22/25 00:09 Respiratory Rate 20 03/22/25 00:09 Blood Pressure 139/81 03/22/25 00:09 Pulse Oximetry 100 03/22/25 00:09 Oxygen Delivery Room Air 03/22/25 00:09 Lab Data 03/22/25 00:51 03/22/25 00:51 Labs: Lab Results 03/22/25 03/22/25 Range/Units 00:51 00:55 WBC 9.7 (4.5-10.0) K/mm3 RBC 4.41 (4.2-5.4) M/mm3 Hgb 12.2 (12.0-15.0) g/dL Hct 38.7 (37.0-47.0) % MCV 87.8 (80-100) fl MCH 27.7 (26-34) pg MCHC 31.5 L (32-36) g/dl RDW 13.9 (11.5-14.5) % Plt Count 426 H (150-375) k/mm3 MPV 8.4 (7.4-10.4) fl Immature Gran % (Auto) 0.2 (0-0.5) % Neut % (Auto) 79.3 H (45.5-73.1) % Lymph % (Auto) 14.7 L (18.3-44.2) % [place] % (Auto) 5.2 (2.6-8.5) % Eos % (Auto) 0.3 (0-4.4) % Baso % (Auto) 0.3 (0.2-1.2) % Lymph # (Auto) 1.43 (0.9-3.2) K/mm3 [place] # (Auto) 0.5 (0.1-0.6) K/mm3 Eos # (Auto) 0.0 (0-0.3) K/mm3 Baso # (Auto) 0.0 (0.0-0.1) K/mm3 Abs Immat Gran (auto) 0.02 (0.00-0.031) K/mm3 Absolute Neuts (auto) 7.7 H (1.3-6.7) K/mm3 Absolute Nucleated RBC 0.000 (0.0-0.012) K/mm3 Nucleated RBC % 0.0 (0.0-0.2) % Sodium 135 L (137-145) mmol/L Potassium 3.7 (3.4-5.0) mmol/L Chloride 104 (98-107) mmol/L Carbon Dioxide 22 (22-30) mmol/L Anion Gap 9 (4-12) mmol/L BUN 7 (7-17) mg/dL Creatinine 0.57 L (0.7-1.0) mg/dL Estim Creat Clear Calc 122 ml/min Estimated GFR > 60 (59 - ) Glucose 99 (65-110) mg/dL Calcium 9.0 (8.4-10.2) mg/dL Total Bilirubin 0.5 (0.2-1.3) mg/dL AST 24 (14-36) U/L ALT 24 (6-35) U/L Alkaline Phosphatase 61 (38-126) U/L Total Protein 7.9 (6.3-8.2) g/dL Albumin 4.7 (3.5-5.1) g/dL Lipase 58 (23-300) U/L Urine Color Yellow (Yellow) Urine Appearance Cloudy H (Clear) Urine pH 6.0 (5.0-9.0) Ur Specific [place] 1.027 (1.001-1.035) Urine Protein Trace (Negative) mg/dL Urine Glucose (UA) Negative (Negative) mg/dL Urine Ketones 1+ H (Negative) mg/dL Ur Blood (Man) 2+ H (Negative) Urine Nitrate Negative (Negative) Urine Bilirubin Negative (Negative) Urine Urobilinogen 1.0 (<2.0) mg/dL Add Ur Microanalysis Reviewed Leukocyte Esterase Rfl Trace H (Negative) PRINCE/UL Urine RBC 11-20 H (0-2) /hpf Urine WBC 0-5 (0-3) /hpf Ur Squamous Epith Cells Many H (Few) /hpf Urine Bacteria 2+ H /hpf Urine Casts 0-2 Urine Mucus Present /lpf POC Urine HCG, Qual Positive (Negative) Discharge Plan Discharge Clinical Impression: Hyperemesis gravidarum Patient Disposition: Home Condition: Improved Instructions: Antibiotic Form, Hyperemesis Gravidarum (ED) Additional Instructions: Please follow-up with your OB within the next 3-5 days. Take the prescribed antibiotic as instructed for your bacteriuria. Use the prescribed Zofran as needed for nausea/vomiting. Return to the ED if any new or worsening symptoms develop. Patient Language: Maori Prescriptions: New ondansetron 4 mg tablet,disintegrating 4 mg PO Q8H PRN (Reason: nausea and vomiting) Qty: 14 0RF cephalexin 500 mg capsule 500 mg PO Q12H 5 Days Qty: 10 0RF No Action ascorbic acid (vitamin C) 125 mg capsule PO vitamin [id number] acid 0.5-1 mg tablet 1 tablet PO DAILY multivitamin [Daily Multi-Vitamin] Tablet 1 tablet PO DAILY sertraline 25 mg tablet 25 mg PO DAILY venlafaxine 37.5 mg tablet 37.5 mg PO DAILY cholecalciferol (vitamin D3) 1,250 mcg (50,000 unit) tablet 1,250 mcg PO WEEKLY Qty: 8 0RF valacyclovir [Valtrex] 500 mg tablet 500 mg PO DAILY Qty: 90 3RF metoclopramide HCl [Reglan] 10 mg tablet 10 mg PO Q6H PRN (Reason: nausea and vomiting) Qty: 30 1RF Follow-up/Referrals: Roger Fay MD [Physician, BLUEPRINT MACHINE OPERATOR] - 3 Days Ulysses Dai DO [Primary Care Provider, Internal Medicine] Time of Disposition: 03:09
--- NOTE | 2025-03-22 03:11 | PC.NURSE ---
no blood cultures needed per edp mary
[2025-03-22] MEDS: SODIUM CHLORIDE 0.9% IV 1,000 ML 999 ML IV CONT (03:17)
[2025-03-22] MEDS: ONDANSETRON INJ 4 MG/2 ML VIAL IV PUSH (03:17)
[2025-03-22] MEDS: cefTRIAXone 1 GM in SODIUM CHLORIDE 0.9% IV 50 ML 100 ML IVPB (03:20)
[2025-03-22 04:25] VITALS: BP 132/67; PULSE 68; RESP 16; TEMP 36.4; O2SAT 98
== END 2025-03-22 04:30 | disposition home or self-care (01) ==
PROVIDERS: Emergency Provider Emergency Medicine; PCP Internal Medicine
DX: O21.0 Mild hyperemesis gravidarum (principal); Z3A.01 Less than 8 weeks gestation of pregnancy
CPT/HCPCS: 36415; 76801; 80053; 81001; 81025; 83690; 85025; 96365; 96375; 99284; J0696; J2405; J7030

== ENCOUNTER 2025-05-06 09:36 | Outpatient (CLI) | payer OTHER, SELFPAY ==
--- OUTSIDE RECORDS SUMMARY | 2025-05-06 09:58 | XMS_ITS | Clinical Summary ---
Author Organization [facility] Address [address] [place] [address] Care Team Providers Care Complex Case Manager Name Role Phone Unavailable Primary Care Provider Unavailabl e Source Comments [facility],non-owned Affiliates and Associated Physician Practices is amultiple site organization consisting of ambulatory clinics and hospital sitesin [place], [place], [place] and [place]. This disclosure is being madepursuant to the Care Everywhere program and may not contain all information available regarding this patient. Last updated 18.[facility] [employer] Social History Tobacco Use Types Packs/Day Years Used Date Smoking Tobacco: Never Assessed Comments Unknown Sex and Gender Information Value Date Recorded Sex Assigned at Not on file Legal Sex Female 1:43 PM CDT Gender Identity Not on file Sexual Orientation Not on file Plan of Treatment Health Maintenance Due Date Last Done Comments HIV SCREENING 2009 HEPATITIS C SCREENING 06/24/2012 DTAP/TDAP/TD VACCINES (1 - Tdap) 2013 HEPATITIS B VACCINE (1 of 3 - 19+ 3-dose series) 2013 PAP SMEAR 2015 HPV VACCINE (1 - 3-dose SCDM series) 2021 DEPRESSION SCREENING 06/26/2024 COVID-19 VACCINE ( - 2023-2 5 season) 2025 INFLUENZA VACCINE (#1) 2025 ZOSTER VACCINE (1 of 2) 2044 [...] patient's age to complete this topic Insurance [facility]
--- OUTSIDE RECORDS SUMMARY | 2025-05-06 09:58 | XMS_ITS | Clinical Summary ---
Author Organization [facility] Address [address] [place] [id number] Care Team Providers Care Sales Manager [place] Name Role Phone None, Provider MD Primary [...] with HPV 2024 COVID-19 Vaccine (1 - 2024-2 6 season) 2025 Influenza Adult (#1) 2025 Hepatitis A Vaccines Aged Out No long er eligible based on patient's age to complete this topic Meningococcal B Vaccine Aged Out No l [...] complete this topic Insurance [employer] Care Teams Sales Manager [place] Relationship Specialty Start Date End Date None, Provider, PCP - General 02/14/20
--- OUTSIDE RECORDS SUMMARY | 2025-05-06 09:58 | XMS_ITS | Clinical Summary ---
Author Organization [facility] Address [address] [place] [address] Care Team Providers Care Slubber Runner Name Role Phone Suhas Ulysses Tru LIN Primary Care Provider Allergies No [...] Encounters Date Type Department Care Team Description 04/16/2025 External Device Data [facility] ABSTRACTION Provider, Abstract 03/25/2025 External Device Data [facility] Provider, Abstract 03/11/2025 External Device Data [facility] Provider, [...] 11/28/2024 1:35 PM CDT Plan of Treatment Health Maintenance Due Date Last Done Comments DTAP/TDAP/TD VACCINES (1 - Tdap) 2013 HEPATITIS B VACCINES (1 of 3 - 19+ 3-dose series) 09/2013 HPV/Cotest (21-29) 2015 HPV VACCINES (1 - 3-dose SCDM series) 2021 CERVICAL CANCER SCREENING 2024 HPV/Cotest (30-65) 2024 PAP SMEAR 2024 INFLUENZA VACCINE (#1) 2025 Insurance [employer] [facility] [employer] [address] Care Teams Slubber Runner Relationship Specialty Start Date End Date Ulysses Dai DO [address] [place] [address] PCP - General Internal Medicine 11/28/24
--- OUTSIDE RECORDS SUMMARY | 2025-05-06 09:58 | XMS_ITS | Patient Health Record ---
Author Organization [facility] Address [address] [place] [address] Care Team Providers Care Medical Technologist Chemistry Name Role Phone TAVIA DICKINSON Primary Care Provider Jamil Dacosta Unavailable [phone] Beverley Burgos Unavailable [phone] Paola Mariee Unavailable [phone] Allergies No Known Allergies Reason For Referral No Information Medications Medication SIG (Take, Route, Frequency, Duration) Notes Start Date End Date Status Sertraline HCl 100 MG Tablet 2 tablet Orally Once a day; Duration: 30 days dose increase 04/14/2025 Active valACYclovir HCl 500 MG Tablet Oral; Duration: 30 Days Active Promethazine HCl 25 MG Tablet Oral; Duration: 10 Days Active Vitamin D Active Probiotic Active Vitamin C Active Vitamin B12 Active Social History Tobacco Use: Social History [...] Status Risk Notes Problem Vitamin D deficiency (13631595) Vitamin D deficiency, unspecified (E55.9) Active confirmed Problem Generalized anxiety disorder (56254848) Generalized anxiety disorder (F41.1) Active confirmed Problem Insomnia disorder related to another mental disorder (40749232) Insomnia due to other mental disorder (F51.05) Active confirmed Problem Thrombocytosis (disorder) (7357641) Thrombocytosis, unspecified (D75.839) Active confirmed Problem Iron deficiency anemia (69877904) Iron deficiency anemia (D50.9) Active confirmed Vital Signs Heart Rate 85 /min 04/14/2025 Height-cm 162.56 cm 04/14/2025 Blood pressure diastolic 78 mm Hg 04/14/2025 Weight-kg 78.02 kg 04/14/2025 Height 64 in 04/14/2025 Blood pressure systolic 118 mm Hg 04/14/2025 Weight 172 lbs 04/14/2025 BMI 29.52 kg/m2 04/14/2025 Encounters Encounter Location Date Provider Diagnosis [facility] [address] [address] 10/10/2024 Jamil Dubose Generalized anxiety disorder F41.1 ; Encounter for screening for depression Z13.31 ; Encounter for screening for cardiovascular disorders Z13.6 ; Insomnia due to other mental disorder F51.05 and Iron deficiency anemia D50.9 [employer] [place] [address] [address] 11/12/2024 Jamil Dubose Encounter for screening for depression Z13.31 ; Encounter for screening for cardiovascular disorders Z13.6 ; Generalized anxiety disorder F41.1 ; Insomnia due to other mental disorder F51.05 and Iron deficiency anemia D50.9 [facility] [place] [address] [address] 01/15/2025 Jamil Dubose Generalized anxiety disorder F41.1 ; Insomnia due to other mental disorder F51.05 and Iron deficiency anemia D50.9 [facility] [address] [place] [address] 02/11/2025 Jamil Dubose Generalized anxiety disorder F41.1 ; Insomnia due to other mental disorder F51.05 and Iron deficiency anemia D50.9 [facility] [address] [place] [address] 02/26/2025 Beverley Burgos Generalized anxiety disorder F41.1 [facility] [address] [place] [address] 04/14/2025 Jamil Dubose Generalized anxiety disorder F41.1 ; Insomnia due to other mental disorder F51.05 ; Iron deficiency anemia D50.9 and state, incidental Z33.1 [place] [address] [place] [address] 01/15/[address] [facility], [place] [address] [place] [address] 09/06/[address] [facility], [facility] [address] [place] [address] 09/06/[address] [facility], [place] [address] [place] [address] 09/09/[address] [facility], [place] [address] [place] [address] 09/10/[address] [facility], [facility] [address] [place] [address] 12/25/2024 Jamil Dubose Generalized anxiety disorder F41.1 [...] 02/26/2025 Generalized anxiety disorder (ICD-10 - F41.1) 04/14/2025 Generalized anxiety disorder (ICD-10 - F41.1) 04/14/2025 Insomnia due to other mental disorder (ICD-10 - F51.05) practice sleep hygiene 04/14/2025 Iron deficiency anemia (ICD-10 - D50.9) 02/11/2025 Insomnia due to other mental disorder (ICD-10 - F51.05) practice sleep hygiene 01/15/2025 Iron deficiency anemia (ICD-10 - D50.9) 10/10/2024 Encounter for screening for depression (ICD-10 - Z13.31) 11/12/2024 Encounter for screening for cardiovascular disorders (ICD-10 - Z13.6) 10/10/2024 Encounter for screening for cardiovascular disorders (ICD-10 - Z13.6) 11/12/2024 Generalized anxiety disorder (ICD-10 - F41.1) 02/11/2025 Iron deficiency anemia (ICD-10 - D50.9) 04/14/2025 state, incidental (ICD-10 - Z33.1) 11 weeks 11/12/2024 Insomnia due to other mental disorder (ICD-10 - F51.05) practice sleep hygiene 10/10/2024 Insomnia due to other mental disorder (ICD-10 - F51.05) practice sleep hygiene 10/10/2024 Iron deficiency anemia (ICD-10 - D50.9) 11/12/2024 Iron deficiency anemia (ICD-10 - D50.9) 10/10/2024 Other recommend counseling Lisa Hernandez is a [id number] mother with a history of anxiety, irritability, [...] patient has an upcoming appointment with a manager msw in November. Plan: - Continue current vitamin [...] have been made to correct them. 11/12/2024 Other Lisa Hernandez presents with ongoing irritability, intrusive thoughts, [...] which was triggered during a trip to [place]. Day-to-day anxiety is described as more manageable, [...] efforts have been made to correct them. 04/14/2025 Marilu Hernandez is an 11-week patient who presents with severe nausea and vomiting requiring emergency department visit, currently experiencing fatigue and irritability. at 11 weeks Patient is just over 11 weeks with due date of October 30 per ultrasound. This differs significantly from her previous , which was uncomplicated except for acid reflux. Current has been complicated by severe hyperemesis gravidarum requiring emergency department evaluation and treatment with promethazine for nausea control. Patient reports inability to take medications during acute illness phase and significant fatigue. Plans to attempt as she was unable to with previous child. Scheduled for repeat section, likely end of September or beginning of October. Plan: - Continue promethazine for nausea management - Provided resources: [employer] for and support groups - Provided [employer] website for medication safety information during and - Follow-up appointment scheduled in 3 months - Plan for section approximately one week before due date Mood symptoms Patient reports significant irritability, particularly toward partner, which improved when able to resume medications after acute illness resolved. Currently experiencing fatigue which she attributes primarily to first trimester symptoms and recent illness rather than depression. Patient has good support system with mother being very supportive. Plan: - Continue current psychiatric medication regimen - Monitor mood symptoms during the note is transcribed using speech recognition [...] Insured Coverage Start Date Coverage End Date [facility] [address] [place] [address] [id number] Lisa Hernandez Self - patient is the insured Medical [...]
--- NOTE | 2025-05-28 12:09 | WPDHOLTEREM ---
Holter/Event Monitor Holter/Event Monitor Date of procedure: 05/06/25 Holter/Event Procedure: 3-7 Day Holter Monitor Indications: Palpitations Conclusion: 1. 7 days holter monitor on 05/06/25. 2. Underlying rhythm is sinus rhythm with intermittent ectopic atrial rhythm. HR range 74-187 bpm; average HR 106 bpm. HR at 187 bpm was on 05/09/25 at 8:17 pm. 3. There are rare premature supraventricular complexes, rare supraventricular couplets, and rare supraventricular triplets. No supraventricular tachycardia. 4. There are rare premature ventricular complexes. No ventricular tachycardia. 5. No significant pauses greater than 3 seconds. 6. Patient reports 3 episodes of symptoms of irregular beats, fluttering which demonstrate sinus tachycardia, HR range 124-143 bpm with 2 episodes with PAC's and PAC's and PVC's.
== END 2025-05-06 09:37 | disposition home or self-care (01) ==
PROVIDERS: PCP Student in an Organized Health Care Education/Training Program
DX: R00.2 Palpitations (principal); Z82.49 Family history of ischemic heart disease and other diseases of the circulatory system
CPT/HCPCS: 93242